=== PATIENT | male | born 1970 | race Caucasian/White ===

== ENCOUNTER 2025-03-02 10:14 | Observation (INO) | payer BC ==
[2025-03-02 10:40] LABS: BASOPHIL % 0.5 % (0.2-1.2); Basophil (Absolute #) 0.04 x10^3/uL (0.01-0.08); Eosinophil (Absolute #) 0.42 x10^3/uL (0.04-0.54); Hematocrit 47.3 % (40.1-51.0); Hemoglobin 16.3 g/dL (13.7-17.5); IMMATURE GRAN # 0.02 x10^3u/L (0.001-0.031); IMMATURE GRAN % 0.3 % (0.001-0.429); Lymphocyte (Absolute #) 1.93 x10^3/uL (1.32-3.57); Mean Corpuscular Hemoglobin 30.7 pg (25.7-32.2); Mean Corpuscular Hgb Concent. 34.5 g/dL (32.3-36.5); Monocyte (Absolute #) 0.66 x10^3/uL (0.30-0.82); NUCLEATED RBC # 0.00 x10^3u/L (0.00-0.012); NUCLEATED RBC % 0.0 % (0.00-0.2); Platelet Count 189 x10^3/uL (163-337); Red Blood Count 5.31 x10^6/uL (4.63-6.08); White Blood Count 7.8 x10^3/uL (4.23-9.07)
[2025-03-02 10:54] LABS: Calcium 8.8 mg/dL (8.4-10.2); Carbon Dioxide 24.0 mmol/L (22-30); Creatinine 1 1.13 mg/dL (0.66-1.25); EST GLOMERULAR FILTRATION RATE 77.2 ML/MIN; Glucose 135.0 mg/dL (74-106); Potassium 3.7 mmol/L (3.5-5.1); SGOT/AST 24.0 U/L (17-59); SGPT/ALT 20.0 U/L (0-50); Total Protein 6.7 g/dL (6.3-8.2)
[2025-03-02 10:57] LABS: INR 0.97 (0.8-3.0); PROTIME 10.9 SECONDS (9.4-12.5); PTT 23.1 SECONDS (25.1-36.5)
--- NOTE | 2025-03-02 11:09 | XRAY ---
CLINICAL HISTORY: stroke, left sided weakness COMPARISON: None. TECHNIQUE: Axial non-contrast CT scan of the brain was performed from the skull base to the high parietal region. One of the following dose reduction techniques was utilized for this exam: automated exposure control, adjustment of the mA and/or kV according to patient size, and use of iterative reconstruction. FINDINGS: Brain Parenchyma: Left inferior frontal lobe volume loss with a hypoattenuating region, suggesting chronic infarction likely secondary to prior intervention. No evidence of acute infarct, hemorrhage, or mass effect. No abnormal areas of hyperattenuation. Ventricular System: A prominent ventricular system is noted, denoting central atrophic changes. No evidence of hydrocephalus. Subarachnoid Spaces: A left supraclinoid surgical clip is noted. Capacious CSF spaces are noted, denoting cortical atrophic changes. No evidence of subarachnoid hemorrhage or extra-axial fluid collections. Cerebellum and Brainstem: Normal size and attenuation are noted. No masses, lesions, or areas of abnormal attenuation are identified. Orbits: The globes, optic nerves, and extraocular muscles demonstrate normal appearance. No evidence of orbital masses or abnormal attenuation. Sinuses: Minimal right ethmoidal and bilateral maxillary mucosal thickening is present. Nasal septum deviation is noted. Mastoid Air Cells: The mastoid air cells are clear. No evidence of mastoiditis. Skull and Meninges: A left frontotemporal craniotomy is noted. IMPRESSION: 1. No evidence of acute intracranial hemorrhage or abnormality. 2. Mild brain involutional changes. 3. 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 4. A left supraclinoid surgical clip is noted. A left frontotemporal craniotomy is noted. 5. Early changes of a stroke may not be detected on a CT scan. If there is strong clinical suspicion of stroke, then suggest MRI with diffusion-weighted imaging. Electronically Signed by: Roosevelt Mcclure MD. (03/02/2025 11:07:50 EDT)
--- NOTE | 2025-03-02 11:37 | ERPHSYRPT ---
- History of Present Illness Time Seen by Provider: 03/02/25 10:22 Source: patient Exam Limitations: no limitations Patient Subjective Stated Complaint: patient woke up at 8 am yesterday morning feeling numb on left side Triage Nursing Assessment: patient presents to ed via private vehicle, patient able to ambulate into ed with weakness, offered w/c and patient accepted, patient alert and oriented x 4, skin p/w/d, denies sob/chest pain, patient has left sided weakness/numbness Physician History: Patient having strokelike symptoms started yesterday. Woke up with left leg weakness, left arm weakness. Patient has a history of hypertension and smoking cigarettes. He is also on several other medications. Patient is maintaining his airway, as I walk in the room he is in no acute distress. States that he is "dragging his left leg" just to get around. No fevers no chills no signs or symptoms of meningitis. He is speaking clearly and has no obvious facial deficits as I talk to him. Patient is taking PO well. Same number of urinations and defecations. The patient has no signs of altered mental status, nuchal rigidity, signs of meningitis. The patient is up-to-date on all vaccinations. Allergies/Adverse Reactions: No Known Drug Allergies Allergy (Unverified 03/02/25 10:40) Home Medications: Amlodipine Besylate 10 mg PO DAILY 03/02/25 [History] Aspirin EC 81 mg [Ecotrin 81 mg] 81 mg PO DAILY 03/02/25 [History] Atorvastatin Calcium [Lipitor] 40 mg PO HS 03/02/25 [History] Furosemide 20 mg [Lasix 20 mg] 20 mg PO DAILY 03/02/25 [History] Hydralazine HCl 50 mg PO TID 03/02/25 [History] Isosorbide Mononitrate [Isosorbide Mononitrate ER] 120 mg PO DAILY 03/02/25 [History] Losartan Potassium 25 mg PO DAILY 03/02/25 [History] Varenicline Tartrate [Chantix] 1 mg PO BID 03/02/25 [History] carvediloL [Carvedilol] 25 mg PO BID 03/02/25 [History] Travel Risk - International Travel Have you traveled outside of the country in past 3 weeks: No - Emerging Infectious Disease Are you exhibiting symptoms associated with any current EIDs: No - Past Medical History Pertinent Past Medical History: Yes Cardiac History: Coronary Artery Disease, Hypertension Other Medical History: Shortness of breath - Past Surgical History Past Surgical History: Yes Neuro Surgical History: Other Other Surgical History: Brain surgery - Social History Smoking Status: Current every day smoker Exposure to second hand smoke: Yes Drug Use: none - Social Determinants of Health Will the patient participate in the screening: Yes Do you worry about a steady place to live?: No Do you have any problems with any of the following?: No known problems In the past 12 months,have you had to go without utilities?: No Transportation Issues: No Has anyone in your support network made you feel unsafe?: No Have you or anyone in your house had to go w/o enough food: No - Nursing Vital Signs Nursing Vital Signs: Initial Vital Signs Temperature 97 F 03/02/25 10:15 Pulse Rate 71 03/02/25 10:15 Respiratory Rate 16 03/02/25 10:15 Blood Pressure 210/128 03/02/25 10:15 O2 Sat by Pulse Oximetry 98 03/02/25 10:15 Pain Scale Pain Intensity 0 - Physical Exam SpO2 Interpretation: normal SpO2: 98 Comments: 03/02/25 11:41 Review of Systems Constitutional: Negative for fever. HENT: Negative for congestion. Respiratory: Negative for shortness of breath. Cardiovascular: Negative for chest pain. Gastrointestinal: Negative for abdominal pain. Genitourinary: Negative for dysuria. Musculoskeletal: Negative for back pain. Skin: Negative for rash. Neurological: Negative for headaches. Psychiatric/Behavioral: Negative for behavioral problems. All other systems reviewed and are negative. Physical Exam Vitals signs and nursing note reviewed. Constitutional: Appearance: Patient is well-developed. HENT: Head: Normocephalic and atraumatic. Eyes: Conjunctiva/sclera: Conjunctivae normal. Neck: Musculoskeletal: Normal range of motion. Trachea: No tracheal deviation. Cardiovascular: Rate and Rhythm: Normal rate. Heart sounds normal. Pulmonary: Effort: Pulmonary effort is normal. No respiratory distress. Abdominal: Palpations: Abdomen is soft. Musculoskeletal: General: No deformity. Skin: General: Skin is warm and dry. Neurological/ Psychiatric: Mental Status: Mental status, behavior, interaction with environment is appropriate for patient's age and condition Motor: Patient lifts right arm against gravity. Muscle strength and tone are normal Patient able to lift right leg against gravity. Patient does have left lower leg drift. Left upper arm drift. Reflexes: Intact major reflexes Sensory: Light touch sensation intact throughout upper and lower extremities Coordination: Rapid alternating movements are intact. Normal [id number] Gait/Stance: Posture is normal, patient is sitting up in bed with normal strength - Course Nursing assessment & vital signs reviewed: Yes EKG Interpreted by Me: Sinus Rhythm (EKG demonstrates sinus rhythm, rate of 73, MS interval 191, QRS 90, QTc is 464, no STEMI or other ST changes) Ordered Tests: Active Orders 24 hr Category Date Time Status Admit as Inpatient ROUTINE Care 03/02/25 12:36 Active Call Admit Doctor for Orders ON ADMISSION Care 03/02/25 12:36 Active Appraisal Coordinator STAT Care 03/02/25 10:30 Active Code Status Order ROUTINE Care 03/02/25 12:36 Active EKG-ER Only STAT Care 03/02/25 10:29 Active IV Insertion STAT Care 03/02/25 10:29 Active NPO (ED) STAT Care 03/02/25 10:29 Active POCT Glucose Check DAILY Care 03/02/25 10:29 Active Heart-Healthy Diet Diet 03/03/25 Breakfast Active HEAD WITHOUT CONTRAST [CT] Stat Exams 03/02/25 10:30 Completed CBC W DIFF Stat Lab 03/02/25 10:35 Completed CMP Stat Lab 03/02/25 10:35 Completed PROTIME WITH INR Stat Lab 03/02/25 10:35 Completed PTT Stat Lab 03/02/25 10:35 Completed TROPONIN Q4H Lab 03/02/25 10:35 Completed TROPONIN Q4H Lab 03/02/25 14:30 Ordered TROPONIN Q4H Lab 03/02/25 18:30 Ordered Transfer Order Routine Transfer 03/02/25 Completed Medication Summary Generic Name Dose Route Start Last Admin Trade Name Freq PRN Reason Stop Dose Admin Nicardipine HCl 25 mg/ Sodium 250 mls @ 50 mls/hr 03/02/25 12:21 Chloride IV 04/01/25 12:20 .Q5H PRN HYPERTENSION Protocol Discontinued Medications Generic Name Dose Route Start Last Admin Trade Name Freq PRN Reason Stop Dose Admin Sodium Chloride Confirm 03/02/25 12:32 Sodium Chloride 0.9% 250 Ml Administered 03/02/25 12:33 Dose 250 mls @ ud IV .STK-MED ONE Nicardipine HCl Confirm 03/02/25 12:32 Nicardipine Hcl 25mg/10ml Vial Administered 03/02/25 12:33 Dose 25 mg IV .STK-MED ONE Lab/Rad Data: Laboratory Result Diagrams 03/02/25 10:35 03/02/25 10:35 Laboratory Results 03/02/25 03/02/25 03/02/25 Range/Units 10:35 10:35 10:35 WBC (4.23-9.07) x10^3/uL RBC (4.63-6.08) x10^6/uL Hgb (13.7-17.5) g/dL Hct (40.1-51.0) % MCV (79.0-92.2) fL MCH (25.7-32.2) pg MCHC (32.3-36.5) g/dL RDW (11.6-14.4) % Plt Count (163-337) x10^3/uL MPV (9.4-12.4) fL Gran % (34.0-67.9) % Immature Gran % (Auto) (0.001-0.429) % Nucleat RBC Rel Count (0.00-0.2) % Eos # (Auto) (0.04-0.54) x10^3/uL Immature Gran # (Auto) (0.001-0.031) x10^3u/L Absolute Lymphs (auto) (1.32-3.57) x10^3/uL Absolute Monos (auto) (0.30-0.82) x10^3/uL Absolute Nucleated RBC (0.00-0.012) x10^3u/L Lymphocytes % (21.8-53.1) % Monocytes % (5.3-12.2) % Eosinophils % (0.8-7.0) % Basophils % (0.2-1.2) % Absolute Granulocytes (1.78-5.38) x10^3/uL Basophils # (0.01-0.08) x10^3/uL PT 10.9 (9.4-12.5) SECONDS INR 0.97 (0.8-3.0) APTT 23.1 L (25.1-36.5) SECONDS Sodium 137 (135-145) mmol/L Potassium 3.7 (3.5-5.1) mmol/L Chloride 106 (98-107) mmol/L Carbon Dioxide 24 (22-30) mmol/L Anion Gap 10.7 (5-15) MEQ/L BUN 13 (9-20) mg/dL Creatinine 1.13 (0.66-1.25) mg/dL Estimated GFR 77.2 ML/MIN Glucose 135 H (74-106) mg/dL Calcium 8.8 (8.4-10.2) mg/dL Total Bilirubin 0.30 (0.2-1.3) mg/dL AST 24 (17-59) U/L ALT 20 (0-50) U/L Alkaline Phosphatase 88 (38-126) U/L Troponin I < 0.012 (0.000-0.033) ng/mL Serum Total Protein 6.7 (6.3-8.2) g/dL Albumin 4.1 (3.5-5.0) g/dL 03/02/25 Range/Units 10:35 WBC 7.8 (4.23-9.07) x10^3/uL RBC 5.31 (4.63-6.08) x10^6/uL Hgb 16.3 (13.7-17.5) g/dL Hct 47.3 (40.1-51.0) % MCV 89.1 (79.0-92.2) fL MCH 30.7 (25.7-32.2) pg MCHC 34.5 (32.3-36.5) g/dL RDW 12.5 (11.6-14.4) % Plt Count 189 (163-337) x10^3/uL MPV 9.2 L (9.4-12.4) fL Gran % 60.4 (34.0-67.9) % Immature Gran % (Auto) 0.3 (0.001-0.429) % Nucleat RBC Rel Count 0.0 (0.00-0.2) % Eos # (Auto) 0.42 (0.04-0.54) x10^3/uL Immature Gran # (Auto) 0.02 (0.001-0.031) x10^3u/L Absolute Lymphs (auto) 1.93 (1.32-3.57) x10^3/uL Absolute Monos (auto) 0.66 (0.30-0.82) x10^3/uL Absolute Nucleated RBC 0.00 (0.00-0.012) x10^3u/L Lymphocytes % 24.9 (21.8-53.1) % Monocytes % 8.5 (5.3-12.2) % Eosinophils % 5.4 (0.8-7.0) % Basophils % 0.5 (0.2-1.2) % Absolute Granulocytes 4.68 (1.78-5.38) x10^3/uL Basophils # 0.04 (0.01-0.08) x10^3/uL PT (9.4-12.5) SECONDS INR (0.8-3.0) APTT (25.1-36.5) SECONDS Sodium (135-145) mmol/L Potassium (3.5-5.1) mmol/L Chloride (98-107) mmol/L Carbon Dioxide (22-30) mmol/L Anion Gap (5-15) MEQ/L BUN (9-20) mg/dL Creatinine (0.66-1.25) mg/dL Estimated GFR ML/MIN Glucose (74-106) mg/dL Calcium (8.4-10.2) mg/dL Total Bilirubin (0.2-1.3) mg/dL AST (17-59) U/L ALT (0-50) U/L Alkaline Phosphatase (38-126) U/L Troponin I (0.000-0.033) ng/mL Serum Total Protein (6.3-8.2) g/dL Albumin (3.5-5.0) g/dL - Progress Progress: improved Progress Note: 03/02/25 11:43 Differential diagnosis includes: PNA, STEMI, NSTEMI, other infection, musculoskeletal pain, pneumothorax stroke, - We'll obtain basic labs, fluids, EKG, troponin, chest x-ray - EKG shows no ST changes - my read - O2 saturations consistently greater than 95%. Reevaluation Head CT demonstrates no obvious acute stroke. No head bleed. Discussed with admitting physician, Dr. Royal Pavon. Patient's blood pressure is 209/115. He requested we not treat this blood pressure. He requested that we discussed with teleneurology prior to admission to the hospital. 03/02/25 12:22 Patient seen by teleneurology, Dr. Leo. Please see his note for full details. He requested CTA head and neck to be done today, loading dose Plavix 300, moved to 75 mg daily after that with an aspirin. Patient's blood pressure is now 230/141 in the room. He recommended starting a nicardipine drip with a goal systolic of 180-140. This is based off of symptoms. Also, on his reexam patient's left leg weakness had improved. He is now able to lift the left leg against gravity without difficulty. Continue close monitoring in the emergency department. I did call back Dr. Royal Pavon. Patient will continue to need ICU admission with close monitoring given his tenuous status. ED critical care statement As staff physician, I have provided critical care. Time: 46 mins Criteria for critical illness: Hypertensive urgency causing strokelike symptoms requiring Cardene drip Treatment and management provided include: Coordination of management with ETC care team, consultants, and inpatient care team. [id number] assessment of condition and response to therapy. Review and interpretation of emergent diagnostic testing. Medical chart review and completion. Direction and immediate supervision of the following therapy: Critical care was time spent personally by me on the following activities: blood draw for specimens, development of treatment plan with patient or surrogate, discussions with consultants, discussions with primary provider, interpretation of cardiac output measurements, evaluation of patient's response to treatment, examination of patient, obtaining history from patient or surrogate, ordering and performing treatments and interventions, ordering and review of laboratory studies, ordering and review of radiographic studies, pulse oximetry, re-evaluation of patient's condition and review of old charts. This time was independent of all procedures performed. Burak Plasencia Counseled pt/family regarding: lab results, diagnosis, need for follow-up, rad results, smoking cessation - Departure Departure Disposition: In-patient Admission Clinical Impression: Stroke-like symptoms, Hypertensive urgency Condition: Stable Critical Care Time: Yes Critical Care Time(excluding separately billable procedures): Critical 75-104 mins
[2025-03-02] MEDS ORDERED: CARDENE*** 25 MG in Sodium Chloride 0.9% 250 ML 240 ML IV PRN (12:31)
[2025-03-02] MEDS ORDERED: CARDENE IV ONE (12:32)
[2025-03-02] MEDS: CARDENE*** 25 MG in Sodium Chloride 0.9% 250 ML 240 ML IV PRN (12:50)
--- NOTE | 2025-03-02 13:29 | PCM.HP ---
History of Present Illness - Chief Complaint Chief Complaint: hypertensive urgency/ stroke r/o Date: 03/02/25 History of Present Illness: Mr. Michaels is a 55-year-old male with a history of HLD, hypertension, tobacco use, and prior cerebral aneurysm repair with left frontotemporal craniotomy and supraclinoid surgical clip placement who presented to the emergency department on March 02, 2025, with acute neurologic symptoms. He reports that at approximately 8:00 a.m. on the prior morning, he awoke and noticed significant difficulty getting out of bed due to left arm numbness, tingling, and weakness accompanied by left leg weakness. Initially, he attributed his symptoms to having slept wrong and assumed his arm and leg had simply fallen asleep. However, when he attempted to get out of bed, he found the numbness and tingling persisted and he was unable to ambulate normally. He described unsteady gait throughout the day, requiring effort to maintain balance. Believing his symptoms might improve with time, he delayed seeking care, but when the weakness and sensory changes failed to resolve, he ultimately presented to the hospital the following morning. 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 On arrival, he was markedly hypertensive with blood pressure of 210/128 mmHg. Subsequent measurement during teleneurology evaluation was again critically elevated at 230/141 mmHg. Other vital signs were stable. Neurologic examination confirmed left-sided weakness and sensory changes. Lab findings remarkable for CBC and chemistries unremarkable. Initial non-contrast CT head showed no acute intracranial hemorrhage or large vessel infarct but did demonstrate chronic postsurgical changes: encephalomalacia of the left inferior frontal lobe, prior left frontotemporal craniotomy, and a supraclinoid surgical clip. Mild brain involutional changes were also noted. No acute mass effect was seen. Given the presence of a metallic aneurysm clip, MRI is contraindicated, limiting advanced imaging to CT and CTA modalities. Teleneurology was consulted (Dr. Leo). Given the patients delayed presentation beyond the thrombolysis and thrombectomy window, recommendations included CTA of the head and neck for vascular evaluation, initiation of dual antiplatelet therapy with aspirin and clopidogrel (loading dose 300 mg, then 75 mg daily), and blood pressure control with IV nicardipine infusion to target systolic BP 889584 mmHg. The patient was admitted to the intensive care unit for close neurologic monitoring and hemodynamic management. I personally provided critical care services to this patient for the evaluation and management of acute ischemic stroke with hypertensive emergency requiring continuous IV antihypertensive infusion and intensive monitoring. The patient was at significant risk for life-threatening deterioration, including intracranial hemorrhage, cerebral edema, or cardiovascular complications. Critical care time included direct evaluation, neurologic assessment, hemodynamic management, review of imaging and laboratory data, titration of IV nicardipine infusion, coordination with teleneurology, initiation of dual a ntiplatelet therapy, and discussions with ICU staff regarding monitoring and disposition. Total critical care time: 45 minutes (exclusive of separately billable procedures). - Review of Systems Constitutional: No Symptoms Eyes: No Symptoms Ears, Nose, & Throat: No Symptoms Respiratory: No Symptoms Cardiac: No Symptoms Abdominal/Gastrointestinal: No Symptoms Genitourinary Symptoms: No Symptoms Musculoskeletal: No Symptoms Skin: No Symptoms Neurological: Focal Weakness (LUE/LLE), Gait Changes (unsteady gait), Headache (chronic), Sensory Changes (LUE/LLE) Psychological: No Symptoms Endocrine: No Symptoms Hematologic/Lymphatic: No Symptoms Immunological/Allergic: No Symptoms Medications & Allergies Home Medications: Home Medication List Amlodipine Besylate 10 mg PO DAILY 03/02/25 [History Confirmed 03/02/25] Aspirin EC 81 mg [Ecotrin 81 mg] 81 mg PO DAILY 03/02/25 [History Confirmed 03/02/25] Atorvastatin Calcium [Lipitor] 40 mg PO HS 03/02/25 [History Confirmed 03/02/25] Furosemide 20 mg [Lasix 20 mg] 20 mg PO DAILY 03/02/25 [History Confirmed 03/02/25] Hydralazine HCl 50 mg PO TID 03/02/25 [History Confirmed 03/02/25] Isosorbide Mononitrate [Isosorbide Mononitrate ER] 120 mg PO DAILY 03/02/25 [History Confirmed 03/02/25] Losartan Potassium 25 mg PO DAILY 03/02/25 [History Confirmed 03/02/25] Varenicline Tartrate [Chantix] 1 mg PO BID 03/02/25 [History Confirmed 03/02/25] carvediloL [Carvedilol] 25 mg PO BID 03/02/25 [History Confirmed 03/02/25] Allergies/Adverse Reactions: Allergies Allergy/AdvReac Type Severity Reaction Status Date / Time No Known Drug Allergies Allergy Unverified 03/02/25 10:40 - Past Medical History Past Medical History: Yes Neurological History: Other (Brain anneurysm) Cardiac History: Hypertension, Other (HLD) Comment: Shortness of breath - Past Surgical History Past Surgical History: Yes Neuro Surgical History: Other Other Surgical History: Brain surgery Significant Family History: diabetes (left frontotemporal craniotomy and supraclinoid surgical clip placement) - Social History Smoking Status: Current every day smoker Exposure to second hand smoke: Yes Alcohol: None Drug Use: none - Social Determinants of Health Will the patient participate in the screening: Yes Do you worry about a steady place to live?: No Do you have any problems with any of the following?: No known problems In the past 12 months,have you had to go without utilities?: No Have you or anyone in your house had to go without enough: No Transportation Issues: No Has anyone in your support network made you feel unsafe?: No - Physical Exam Vital Signs: Vital Signs - 24 hr Temp Pulse Resp BP BP Pulse Ox 03/02/25 13:09 98 03/02/25 12:49 60 16 189/131 98 03/02/25 12:30 212/126 03/02/25 12:03 230/141 98 03/02/25 12:01 59 L 14 219/132 98 03/02/25 11:30 61 13 184/115 97 03/02/25 11:01 209/115 03/02/25 10:49 213/138 03/02/25 10:26 213/141 96 03/02/25 10:15 97 F 71 16 210/128 98 General Appearance: no apparent distress Neurologic Exam: alert, oriented x 3, cooperative, sensory deficit (lUE/LLE), motor weakness (LLE/LUE Hand disease case manager Left 4/5 R 5/5 Left leg 2/5 right leg 5/5 strength) Eye Exam: PERRL/EOMI Ears, Nose, Throat Exam: normal ENT inspection Neck Exam: normal inspection Respiratory Exam: normal breath sounds, lungs clear Cardiovascular Exam: regular rate/rhythm, normal heart sounds Gastrointestinal/Abdomen Exam: soft, normal bowel sounds Rectal Exam: deferred Back Exam: normal inspection Extremity Exam: normal inspection Skin Exam: normal color Results - Labs Lab/Micro Results: Lab Results-Last 24 Hours 03/02/25 03/02/25 03/02/25 Range/Units 10:35 10:35 10:35 WBC 7.8 (4.23-9.07) x10^3/uL RBC 5.31 (4.63-6.08) x10^6/uL Hgb 16.3 (13.7-17.5) g/dL Hct 47.3 (40.1-51.0) % MCV 89.1 (79.0-92.2) fL MCH 30.7 (25.7-32.2) pg MCHC 34.5 (32.3-36.5) g/dL RDW 12.5 (11.6-14.4) % Plt Count 189 (163-337) x10^3/uL MPV 9.2 L (9.4-12.4) fL Gran % 60.4 (34.0-67.9) % Immature Gran % (Auto) 0.3 (0.001-0.429) % Nucleat RBC Rel Count 0.0 (0.00-0.2) % Eos # (Auto) 0.42 (0.04-0.54) x10^3/uL Immature Gran # (Auto) 0.02 (0.001-0.031) x10^3u/L Absolute Lymphs (auto) 1.93 (1.32-3.57) x10^3/uL Absolute Monos (auto) 0.66 (0.30-0.82) x10^3/uL Absolute Nucleated RBC 0.00 (0.00-0.012) x10^3u/L Lymphocytes % 24.9 (21.8-53.1) % Monocytes % 8.5 (5.3-12.2) % Eosinophils % 5.4 (0.8-7.0) % Basophils % 0.5 (0.2-1.2) % Absolute Granulocytes 4.68 (1.78-5.38) x10^3/uL Basophils # 0.04 (0.01-0.08) x10^3/uL PT 10.9 (9.4-12.5) SECONDS INR 0.97 (0.8-3.0) APTT 23.1 L (25.1-36.5) SECONDS Sodium 137 (135-145) mmol/L Potassium 3.7 (3.5-5.1) mmol/L Chloride 106 (98-107) mmol/L Carbon Dioxide 24 (22-30) mmol/L Anion Gap 10.7 (5-15) MEQ/L BUN 13 (9-20) mg/dL Creatinine 1.13 (0.66-1.25) mg/dL Estimated GFR 77.2 ML/MIN Glucose 135 H (74-106) mg/dL Calcium 8.8 (8.4-10.2) mg/dL Total Bilirubin 0.30 (0.2-1.3) mg/dL AST 24 (17-59) U/L ALT 20 (0-50) U/L Alkaline Phosphatase 88 (38-126) U/L Troponin I (0.000-0.033) ng/mL Serum Total Protein 6.7 (6.3-8.2) g/dL Albumin 4.1 (3.5-5.0) g/dL 03/02/25 Range/Units 10:35 WBC (4.23-9.07) x10^3/uL RBC (4.63-6.08) x10^6/uL Hgb (13.7-17.5) g/dL Hct (40.1-51.0) % MCV (79.0-92.2) fL MCH (25.7-32.2) pg MCHC (32.3-36.5) g/dL RDW (11.6-14.4) % Plt Count (163-337) x10^3/uL MPV (9.4-12.4) fL Gran % (34.0-67.9) % Immature Gran % (Auto) (0.001-0.429) % Nucleat RBC Rel Count (0.00-0.2) % Eos # (Auto) (0.04-0.54) x10^3/uL Immature Gran # (Auto) (0.001-0.031) x10^3u/L Absolute Lymphs (auto) (1.32-3.57) x10^3/uL Absolute Monos (auto) (0.30-0.82) x10^3/uL Absolute Nucleated RBC (0.00-0.012) x10^3u/L Lymphocytes % (21.8-53.1) % Monocytes % (5.3-12.2) % Eosinophils % (0.8-7.0) % Basophils % (0.2-1.2) % Absolute Granulocytes (1.78-5.38) x10^3/uL Basophils # (0.01-0.08) x10^3/uL PT (9.4-12.5) SECONDS INR (0.8-3.0) APTT (25.1-36.5) SECONDS Sodium (135-145) mmol/L Potassium (3.5-5.1) mmol/L Chloride (98-107) mmol/L Carbon Dioxide (22-30) mmol/L Anion Gap (5-15) MEQ/L BUN (9-20) mg/dL Creatinine (0.66-1.25) mg/dL Estimated GFR ML/MIN Glucose (74-106) mg/dL Calcium (8.4-10.2) mg/dL Total Bilirubin (0.2-1.3) mg/dL AST (17-59) U/L ALT (0-50) U/L Alkaline Phosphatase (38-126) U/L Troponin I < 0.012 (0.000-0.033) ng/mL Serum Total Protein (6.3-8.2) g/dL Albumin (3.5-5.0) g/dL - Radiology Impressions Radiology Exams & Impressions: Radiology Procedures Category Date Time Status HEAD WITHOUT CONTRAST [CT] Stat Exams 03/02/25 10:30 Completed Assessment/Plan (1) Hypertensive urgency Current Visit: Yes Status: Acute Assessment & Plan: -Presenting BP >210/120, peaking at 230/141 mmHg. -Nicardipine infusion initiated; titrate to goal systolic 335340 mmHg. -Continuous cardiac monitoring; arterial line placement if feasible. -Avoid rapid overcorrection to maintain cerebral perfusion given ischemic stroke. -Transition to oral antihypertensives once stabilized. Code(s): I16.0 - HYPERTENSIVE URGENCY (2) Stroke-like symptoms Current Visit: Yes Status: Acute Assessment & Plan: -Symptom onset >24 hours prior; outside reperfusion therapy window. -CT head: no acute hemorrhage, but prior craniotomy/clip with chronic encephalo malacia. -MRI contraindicated due to supraclinoid aneurysm clip. -CTA head/neck ordered for vascular evaluation -Started on dual antiplatelet therapy (aspirin + clopidogrel) per neurology.- Plavix 300mg loading dose, then 75mg daily there after/ASA -Admit ICU for q1h neuro checks, continue DAPT, and trend CT imaging for stability. -If CTA unrevealing, consider repeat CT at 24 hours to exclude evolving infarct. -Neurology to follow -Nicardipine drip per neurology for goal systolic BP 140-180 Code(s): R29.90 - UNSPECIFIED SYMPTOMS AND SIGNS INVOLVING THE NERVOUS SYSTEM (3) History of cerebral aneurysm repair Current Visit: Yes Status: Acute Assessment & Plan: -Prior supraclinoid clip documented on CT. -MRI contraindicated unless operative notes confirm MRI-compatible clip type. -Follow stroke pathway with CT/CTA imaging only -Patient states he does not follow up with neurology Code(s): Z98.890 - OTHER SPECIFIED POSTPROCEDURAL STATES; Z86.79 - PERSONAL HISTORY OF OTHER DISEASES OF THE CIRCULATORY SYSTEM (4) CAD (coronary artery disease) Current Visit: Yes Status: Acute Assessment & Plan: -Currently on aspirin, now transitioned to DAPT - currently on statin -Monitor for angina or troponin rise given hypertensive stress. -Outpatient cardiology follow-up after acute neurologic stabilization. Code(s): I25.10 - ATHSCL HEART DISEASE OF [place] CORONARY ARTERY W/O ANG PCTRS (5) HTN (hypertension) Current Visit: Yes Status: Acute Assessment & Plan: -Long-standing, poorly controlled -patient states systolic BP normally in the 200's -Review home antihypertensives once stabilized. -Adjust oral regimen prior to discharge for long-term BP control. Code(s): I10 - ESSENTIAL (PRIMARY) HYPERTENSION (6) Smoker Current Visit: Yes Status: Acute Assessment & Plan: -Major risk factor for vascular disease. -Provide cessation counseling once clinically stable; consider nicotine replacement. VTE: Plavix/ASA PPI: protonix Dispo: 1-2 days Code status: Full Code Code(s): F17.200 - NICOTINE DEPENDENCE, UNSPECIFIED, UNCOMPLICATED Telemedicine Encounter - Telemedicine Encounter Telemedicine Encounter: "The entirety of this encounter was performed via Telemedicine" This visit was performed using real-time audio and video connection between my location and thepatients locationwith the assistance of a surrogateat the patients location. Written or verbal consent was obtained from the patient/guardian to perform this visit [email or web address] technology. Any patient questions regarding the telemedicine interaction were answered.
[2025-03-02] MEDS ORDERED: Zofran 4 MG/2 ML VIAL IV PRN (13:47)
[2025-03-02] MEDS: Nicoderm CQ 21 MG TOP SCH (14:57)
[2025-03-02] MEDS: PLAVIX Tablet PO ONE (14:59)
[2025-03-02] MEDS: LIPITOR 40MG PO SCH (15:01)
--- NOTE | 2025-03-02 18:21 | XRAY ---
CLINICAL HISTORY: stroke like symptoms COMPARISON: No previous studies are available for comparison. TECHNIQUE: CT angiography of the head and neck was performed following the intravenous administration of iodinated contrast material. Axial images were obtained from the aortic arch to the vertex. Coronal and sagittal reformatted images were also reviewed. One of the following dose reduction techniques was utilized for this exam: automated exposure control, adjustment of the mA and/or kV according to patient size, and use of iterative reconstruction. One of these 3D techniques was utilized: Maximum Intensity Pixel (MIP), 3D reconstructed images, volume rendered images, or surface shaded rendering. FINDINGS: Carotid Arteries: The common, internal, and external carotid arteries are patent bilaterally, with no evidence of significant stenosis, aneurysm, or dissection. Mixed atheromatous plaque is noted at the proximal part of the left internal carotid artery, causing minimal stenosis of about 10% of its lumen. Vertebral Arteries: The right vertebral artery is markedly hypoplastic and faintly opacified along its course, likely a normal variant. The left vertebral artery is patent, with no evidence of significant stenosis, aneurysm, or dissection. Thyroid Gland: The thyroid gland is normal in size and appearance, with no focal lesions. Lymph Nodes: There is no evidence of significant lymphadenopathy in the neck. Soft Tissues: The soft tissues of the neck are unremarkable, with no evidence of masses or abnormal collections. Additional Findings: Degenerative changes of the spine. IMPRESSION: 1. No evidence of significant vascular abnormalities. 2. Markedly hypoplastic, faintly opacified right vertebral artery along its course, likely a normal variant Electronically Signed by: Roosevelt Mcclure MD. (03/02/2025 18:20:05 EDT)
--- NOTE | 2025-03-02 18:35 | XRAY ---
CLINICAL HISTORY: stroke like symptoms COMPARISON: No previous studies are available for comparison. TECHNIQUE: CT angiography of the head was performed with and without the administration of iodinated contrast material. Contiguous axial images were obtained from the base of the skull to the vertex. Coronal and sagittal reformatted images were also reviewed. One of the following 3D techniques was utilized: Maximum Intensity Pixel (MIP), 3D reconstructed images, volume rendered images, or surface shaded rendering. One of the following dose reduction techniques was utilized for this exam: automated exposure control, adjustment of the mA and/or kV according to patient size, or use of iterative reconstruction. FINDINGS: Intracranial arteries: The intracranial arteries, including the anterior cerebral arteries, middle cerebral arteries, posterior cerebral arteries, basilar artery, and vertebral arteries, are all patent without evidence of significant stenosis, aneurysm, or dissection. There is no evidence of vascular malformations. A hypoplastic right vertebral artery and a dominant left vertebral artery are present, which is likely a normal variant. A surgical clip is noted at the anatomical site of the anterior communicating artery. Mild atherosclerotic changes of the cavernous portion of both internal carotid arteries are present, with multiple calcified plaques causing mild stenosis of up to 20% of their lumen. [place]: The [place] is intact with no anatomical variations or abnormalities noted. All segments are well visualized and normal in appearance. Venous system: The visualized portions of the venous system, including the dural venous sinuses, are patent with no evidence of thrombosis. Brain parenchyma: The brain parenchyma shows no evidence of acute infarct, hemorrhage, or mass effect. The ventricles and sulci are normal in size and configuration. Bones: The bony structures of the skull are intact without evidence of fracture or destructive lesions. Soft tissues: The visualized soft tissues of the head are unremarkable. Additional findings: Craniotomy is noted at the left frontoparietal temporal region. IMPRESSION: 1. No evidence of significant vascular abnormalities. 2. Hypoplastic right vertebral artery and dominant left vertebral artery, which is likely a normal variant. 3. A surgical clip is noted at the anatomical site of the anterior communicating artery. 4. Mild atherosclerotic changes of the cavernous portion of both internal carotid arteries without significant stenosis. Electronically Signed by: Roosevelt Mcclure MD. (03/02/2025 18:34:20 EDT)
--- NOTE | 2025-03-03 05:23 | PCM.NOTE ---
Date and Time: 03/03/25 0522 Subjective Assessment: Mr. Michaels is a 55-year-old male with a history of HLD, hypertension, tobacco use, and prior cerebral aneurysm repair with left frontotemporal craniotomy and supraclinoid surgical clip placement who presented to the emergency department on March 02, 2025, with acute neurologic symptoms. He reports that at approximately 8:00 a.m. on the prior morning, he awoke and noticed significant difficulty getting out of bed due to left arm numbness, tingling, and weakness accompanied by left leg weakness. Initially, he attributed his symptoms to having slept wrong and assumed his arm and leg had simply fallen asleep. However, when he attempted to get out of bed, he found the numbness and tingling persisted and he was unable to ambulate normally. He described unsteady gait throughout the day, requiring effort to maintain balance. Believing his symptoms might improve with time, he delayed seeking care, but when the weakness and sensory changes failed to resolve, he ultimately presented to the hospital the following morning. 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 On arrival, he was markedly hypertensive with blood pressure of 210/128 mmHg. Subsequent measurement during teleneurology evaluation was again critically elevated at 230/141 mmHg. Other vital signs were stable. Neurologic examination confirmed left-sided weakness and sensory changes. Lab findings remarkable for CBC and chemistries unremarkable. Initial non-contrast CT head showed no acute intracranial hemorrhage or large vessel infarct but did demonstrate chronic postsurgical changes: encephalomalacia of the left inferior frontal lobe, prior left frontotemporal craniotomy, and a supraclinoid surgical clip. Mild brain involutional changes were also noted. No acute mass effect was seen. Given the presence of a metallic aneurysm clip, MRI is contraindicated, limiting advanced imaging to CT and CTA modalities. Teleneurology was consulted (Dr. Leo). Given the patients delayed presentation beyond the thrombolysis and thrombectomy window, recommendations included CTA of the head and neck for vascular evaluation, initiation of dual antiplatelet therapy with aspirin and clopidogrel (loading dose 300 mg, then 75 mg daily), and blood pressure control with IV nicardipine infusion to target systolic BP 550519 mmHg. The patient was admitted to the intensive care unit for close neurologic monitoring and hemodyn amic management. 03/03: Patient evaluated at bedside and continues to endorse chronic headache along with left-sided upper and lower extremity weakness. Blood pressure is now better controlled, currently at goal with systolic <180. Patient reports his home blood pressure typically runs >180, often in the [id number]. Nicardipine infusion has been discontinued. Antihypertensive regimen adjusted: losartan increased to 100 mg daily, hydralazine increased to 100 mg three times daily, hydrochlorothiazide 25 mg daily added, and furosemide discontinued. CTA head and neck was unremarkable. Patient is scheduled for repeat head CT this afternoon per neurology recommendations. Neurology will be re-consulted once repeat imaging and all results are available for review. - Review of Systems Constitutional: No Symptoms, Night Sweats Ears, Nose, & Throat: No Symptoms Respiratory: No Symptoms Cardiac: No Symptoms Abdominal/Gastrointestinal: No Symptoms Genitourinary Symptoms: No Symptoms Musculoskeletal: No Symptoms Skin: No Symptoms Neurological: Focal Weakness, Headache (chronic), Sensory Changes Psychological: No Symptoms Endocrine: No Symptoms Hematologic/Lymphatic: No Symptoms Objective Exam General Appearance: no apparent distress Neurologic Exam: alert, oriented x 3, cooperative, motor deficits (LUE/LLE), sensory deficit (LUE/LLE), abnormal gait Skin Exam: normal color Eye Exam: PERRL Ears, Nose, Throat Exam: normal ENT inspection Neck Exam: normal inspection Lymphatic Exam: adenopathy Respiratory Exam: normal breath sounds, lungs clear Cardiovascular Exam: regular rate/rhythm, normal heart sounds Gastrointestinal/Abdomen Exam: soft, normal bowel sounds Extremity Exam: normal inspection Back Exam: normal inspection Male Genitalia Exam: deferred Rectal Exam: deferred Objective Data Vital Signs: Vital Signs - 24 hr Temp Pulse Resp BP BP Pulse Ox 03/03/25 05:07 67 18 144/105 94 L 03/03/25 05:00 69 14 127/103 96 03/03/25 04:45 67 15 139/97 95 03/03/25 04:30 69 16 141/99 94 L 03/03/25 04:15 66 33 H 150/102 95 03/03/25 04:00 98.1 F 65 20 146/101 97 03/03/25 03:45 69 19 144/102 97 03/03/25 03:30 66 21 141/98 97 03/03/25 03:15 65 16 140/100 95 03/03/25 03:00 67 15 139/99 94 L 03/03/25 02:45 68 16 135/97 94 L 03/03/25 02:30 66 15 136/96 95 03/03/25 02:15 68 18 135/95 95 03/03/25 02:00 68 18 142/100 96 03/03/25 01:45 70 17 143/99 97 03/03/25 01:30 70 19 137/98 96 03/03/25 01:23 68 16 145/105 95 03/03/25 01:15 75 12 128/101 97 03/03/25 01:00 71 17 141/107 95 03/03/25 00:45 74 17 146/96 95 03/03/25 00:30 73 16 141/103 94 L 03/03/25 00:15 81 16 142/110 97 03/03/25 00:01 81 03/03/25 00:00 98.4 F 81 17 129/97 97 03/02/25 23:45 72 16 133/95 97 03/02/25 23:30 75 16 129/98 96 03/02/25 23:15 83 17 144/102 96 03/02/25 23:00 97 H 20 128/107 96 03/02/25 22:45 85 20 133/93 96 03/02/25 22:30 78 21 131/87 99 03/02/25 22:15 78 17 129/88 97 03/02/25 22:00 78 19 140/98 98 03/02/25 21:45 98 H 20 133/110 95 03/02/25 21:30 85 22 136/94 95 03/02/25 21:15 85 21 138/90 92 L 03/02/25 21:00 86 17 130/88 97 03/02/25 20:45 87 18 124/89 96 03/02/25 20:36 98 H 20 139/98 97 03/02/25 20:31 98 H 17 122/93 97 03/02/25 20:30 98 H 25 H 87 L 03/02/25 20:16 102 H 15 162/105 96 03/02/25 20:00 98.1 F 109 H 16 153/99 96 03/02/25 19:45 100 H 24 159/104 97 03/02/25 19:30 105 H 23 149/115 03/02/25 19:15 99 H 21 147/99 03/02/25 19:00 92 H 25 H 150/101 03/02/25 18:45 97 H 23 146/97 03/02/25 18:40 95 H 16 141/99 03/02/25 18:39 101 H 19 03/02/25 18:30 96 H 17 03/02/25 18:20 89 21 03/02/25 18:17 92 H 22 03/02/25 18:00 98.5 F 93 H 22 151/107 03/02/25 17:45 92 H 20 156/106 03/02/25 17:30 98 H 18 166/109 03/02/25 17:24 100 H 24 165/114 03/02/25 17:00 158/105 03/02/25 16:45 89 21 155/114 89 L 03/02/25 16:30 93 H 21 135/114 79 L 03/02/25 16:15 98 H 18 156/117 96 03/02/25 16:03 85 24 154/101 97 03/02/25 16:02 77 21 94 L 03/02/25 16:00 92 H 03/02/25 15:45 87 163/120 03/02/25 15:32 96 H 25 H 181/129 98 03/02/25 15:16 94 H 9 L 156/107 95 03/02/25 15:00 81 22 174/113 98 03/02/25 14:46 92 H 24 168/111 97 03/02/25 13:10 98.2 F 66 20 200/125 98 03/02/25 13:09 98 03/02/25 12:49 60 16 189/131 98 03/02/25 12:30 212/126 03/02/25 12:03 230/141 98 03/02/25 12:01 59 L 14 219/132 98 03/02/25 11:30 61 13 184/115 97 03/02/25 11:01 209/115 03/02/25 10:49 213/138 03/02/25 10:26 213/141 96 03/02/25 10:15 97 F 71 16 210/128 98 Pain Assessment - Last Documented Pain Intensity 0 Intake and Output: Intake & Output 10/02/03/01/25 03/02/25 03/03/25 11:59 11:59 11:59 11:59 Intake Total 1156 Output Total 2750 Balance -1594 Weight 86.183 kg 83.4 kg Lab Results: Lab Results-Last 24 Hours 03/02/25 03/02/25 03/02/25 Range/Units 10:35 10:35 10:35 WBC 7.8 (4.23-9.07) x10^3/uL RBC 5.31 (4.63-6.08) x10^6/uL Hgb 16.3 (13.7-17.5) g/dL Hct 47.3 (40.1-51.0) % MCV 89.1 (79.0-92.2) fL MCH 30.7 (25.7-32.2) pg MCHC 34.5 (32.3-36.5) g/dL RDW 12.5 (11.6-14.4) % Plt Count 189 (163-337) x10^3/uL MPV 9.2 L (9.4-12.4) fL Gran % 60.4 (34.0-67.9) % Immature Gran % (Auto) 0.3 (0.001-0.429) % Nucleat RBC Rel Count 0.0 (0.00-0.2) % Eos # (Auto) 0.42 (0.04-0.54) x10^3/uL Immature Gran # (Auto) 0.02 (0.001-0.031) x10^3u/L Absolute Lymphs (auto) 1.93 (1.32-3.57) x10^3/uL Absolute Monos (auto) 0.66 (0.30-0.82) x10^3/uL Absolute Nucleated RBC 0.00 (0.00-0.012) x10^3u/L Lymphocytes % 24.9 (21.8-53.1) % Monocytes % 8.5 (5.3-12.2) % Eosinophils % 5.4 (0.8-7.0) % Basophils % 0.5 (0.2-1.2) % Absolute Granulocytes 4.68 (1.78-5.38) x10^3/uL Basophils # 0.04 (0.01-0.08) x10^3/uL PT 10.9 (9.4-12.5) SECONDS INR 0.97 (0.8-3.0) APTT 23.1 L (25.1-36.5) SECONDS Sodium 137 (135-145) mmol/L Potassium 3.7 (3.5-5.1) mmol/L Chloride 106 (98-107) mmol/L Carbon Dioxide 24 (22-30) mmol/L Anion Gap 10.7 (5-15) MEQ/L BUN 13 (9-20) mg/dL Creatinine 1.13 (0.66-1.25) mg/dL Estimated GFR 77.2 ML/MIN Glucose 135 H (74-106) mg/dL Hemoglobin A1c (4.5-6.0) % Calcium 8.8 (8.4-10.2) mg/dL Total Bilirubin 0.30 (0.2-1.3) mg/dL AST 24 (17-59) U/L ALT 20 (0-50) U/L Alkaline Phosphatase 88 (38-126) U/L Troponin I (0.000-0.033) ng/mL Serum Total Protein 6.7 (6.3-8.2) g/dL Albumin 4.1 (3.5-5.0) g/dL 03/02/25 03/02/25 03/02/25 Range/Units 10:35 10:35 14:35 WBC (4.23-9.07) x10^3/uL RBC (4.63-6.08) x10^6/uL Hgb (13.7-17.5) g/dL Hct (40.1-51.0) % MCV (79.0-92.2) fL MCH (25.7-32.2) pg MCHC (32.3-36.5) g/dL RDW (11.6-14.4) % Plt Count (163-337) x10^3/uL MPV (9.4-12.4) fL Gran % (34.0-67.9) % Immature Gran % (Auto) (0.001-0.429) % Nucleat RBC Rel Count (0.00-0.2) % Eos # (Auto) (0.04-0.54) x10^3/uL Immature Gran # (Auto) (0.001-0.031) x10^3u/L Absolute Lymphs (auto) (1.32-3.57) x10^3/uL Absolute Monos (auto) (0.30-0.82) x10^3/uL Absolute Nucleated RBC (0.00-0.012) x10^3u/L Lymphocytes % (21.8-53.1) % Monocytes % (5.3-12.2) % Eosinophils % (0.8-7.0) % Basophils % (0.2-1.2) % Absolute Granulocytes (1.78-5.38) x10^3/uL Basophils # (0.01-0.08) x10^3/uL PT (9.4-12.5) SECONDS INR (0.8-3.0) APTT (25.1-36.5) SECONDS Sodium (135-145) mmol/L Potassium (3.5-5.1) mmol/L Chloride (98-107) mmol/L Carbon Dioxide (22-30) mmol/L Anion Gap (5-15) MEQ/L BUN (9-20) mg/dL Creatinine (0.66-1.25) mg/dL Estimated GFR ML/MIN Glucose (74-106) mg/dL Hemoglobin A1c 5.32 (4.5-6.0) % Calcium (8.4-10.2) mg/dL Total Bilirubin (0.2-1.3) mg/dL AST (17-59) U/L ALT (0-50) U/L Alkaline Phosphatase (38-126) U/L Troponin I < 0.012 < 0.012 (0.000-0.033) ng/mL Serum Total Protein (6.3-8.2) g/dL Albumin (3.5-5.0) g/dL 03/02/25 Range/Units 18:16 WBC (4.23-9.07) x10^3/uL RBC (4.63-6.08) x10^6/uL Hgb (13.7-17.5) g/dL Hct (40.1-51.0) % MCV (79.0-92.2) fL MCH (25.7-32.2) pg MCHC (32.3-36.5) g/dL RDW (11.6-14.4) % Plt Count (163-337) x10^3/uL MPV (9.4-12.4) fL Gran % (34.0-67.9) % Immature Gran % (Auto) (0.001-0.429) % Nucleat RBC Rel Count (0.00-0.2) % Eos # (Auto) (0.04-0.54) x10^3/uL Immature Gran # (Auto) (0.001-0.031) x10^3u/L Absolute Lymphs (auto) (1.32-3.57) x10^3/uL Absolute Monos (auto) (0.30-0.82) x10^3/uL Absolute Nucleated RBC (0.00-0.012) x10^3u/L Lymphocytes % (21.8-53.1) % Monocytes % (5.3-12.2) % Eosinophils % (0.8-7.0) % Basophils % (0.2-1.2) % Absolute Granulocytes (1.78-5.38) x10^3/uL Basophils # (0.01-0.08) x10^3/uL PT (9.4-12.5) SECONDS INR (0.8-3.0) APTT (25.1-36.5) SECONDS Sodium (135-145) mmol/L Potassium (3.5-5.1) mmol/L Chloride (98-107) mmol/L Carbon Dioxide (22-30) mmol/L Anion Gap (5-15) MEQ/L BUN (9-20) mg/dL Creatinine (0.66-1.25) mg/dL Estimated GFR ML/MIN Glucose (74-106) mg/dL Hemoglobin A1c (4.5-6.0) % Calcium (8.4-10.2) mg/dL Total Bilirubin (0.2-1.3) mg/dL AST (17-59) U/L ALT (0-50) U/L Alkaline Phosphatase (38-126) U/L Troponin I < 0.012 (0.000-0.033) ng/mL Serum Total Protein (6.3-8.2) g/dL Albumin (3.5-5.0) g/dL Radiology Exams: Radiology Procedures Category Date Time Status CT ANGIOGRAPHY NECK [CT] Stat Exams 03/02/25 13:41 Completed CTA HEAD W AND/OR WO CONTRAST [CT] Stat Exams 03/02/25 13:41 Completed ECHO W/2D AND DOPPLER [US] Routine Exams 03/04/25 05:00 Ordered HEAD WITHOUT CONTRAST [CT] Routine Exams 03/03/25 13:00 Ordered HEAD WITHOUT CONTRAST [CT] Stat Exams 03/02/25 10:30 Completed Medications: Medications Generic Name Dose Route Start Last Admin Trade Name Freq PRN Reason Stop Dose Admin Acetaminophen 650 mg 03/02/25 13:47 Acetaminophen 325 Mg Tablet PO 04/01/25 13:46 Q4H PRN PRN PAIN, FEVER, HEADACHE Aspirin 81 mg 03/03/25 10:00 Aspirin 81 Mg Tablet.Ec PO 04/02/25 09:59 QAM MAYELIN Atorvastatin Calcium 80 mg 03/02/25 13:44 03/02/25 15:01 Atorvastatin Calcium 40 Mg Tablet PO 04/01/25 13:43 80 mg DAILY MAYELIN Administration Clopidogrel Bisulfate 75 mg 03/03/25 10:00 Clopidogrel Bisulfate 75 Mg Tablet PO 04/02/25 09:59 DAILY MAYELIN Nicardipine HCl 25 mg/ Sodium 250 mls @ 50 mls/hr 03/02/25 12:21 03/02/25 23:02 Chloride IV 04/01/25 12:20 0 mg/hr .Q5H PRN 0 mls/hr HYPERTENSION Titration Protocol Nicotine 21 mg 03/02/25 14:00 03/02/25 14:57 Nicotine 21 Mg/Patch Patch TOP 04/01/25 13:59 Not Given Q24H10 [facility] Ondansetron HCl 4 mg 03/02/25 13:47 Ondansetron Hcl 4 Mg/2 Ml Vial IV 04/01/25 13:46 Q6H PRN PRN NAUSEA/VOMITING Discontinued Medications Generic Name Dose Route Start Last Admin Trade Name Freq PRN Reason Stop Dose Admin Clopidogrel Bisulfate 300 mg 03/02/25 13:41 03/02/25 14:59 Clopidogrel Bisulfate 75 Mg Tablet PO 03/02/25 13:42 300 mg STAT ONE Administration Sodium Chloride Confirm 03/02/25 12:32 Sodium Chloride 0.9% 250 Ml Administered 03/02/25 12:33 Dose 250 mls @ ud IV .STK-MED ONE Nicardipine HCl Confirm 03/02/25 12:32 Nicardipine Hcl 25mg/10ml Vial Administered 03/02/25 12:33 Dose 25 mg IV .[place] Assessment/Plan (1) Hypertensive urgency Current Visit: Yes Status: Acute Assessment & Plan: -Presenting BP >210/120, peaking at 230/141 mmHg. -Nicardipine infusion initiated; titrate to goal systolic 365241 mmHg. -Continuous cardiac monitoring; arterial line placement if feasible. -Avoid rapid overcorrection to maintain cerebral perfusion given ischemic stroke. -Transition to oral antihypertensives once stabilized. 03/03: -BP now at target systolic <180 following discontinuation of nicardipine infusion per neurology recommendations -Home regimen adjusted: losartan 100 mg daily, hydralazine 100 mg TID, HCTZ 25 mg daily added. -Discontinued furosemide. -Continue to monitor BP closely with goal systolic <180. Code(s): I16.0 - HYPERTENSIVE URGENCY (2) Stroke-like symptoms Current Visit: Yes Status: Acute Assessment & Plan: -Symptom onset >24 hours prior; outside reperfusion therapy window. -CT head: no acute hemorrhage, but prior craniotomy/clip with chronic encephalomalacia. -MRI contraindicated due to supraclinoid aneurysm clip. -CTA head/neck ordered for vascular evaluation -Started on dual antiplatelet therapy (aspirin + clopidogrel) per neurology.- Plavix 300mg loading dose, then 75mg daily there after/ASA -Admit ICU for q1h neuro checks, continue DAPT, and trend CT imaging for stability. -If CTA unrevealing, consider repeat CT at 24 hours to exclude evolving infarct. -Neurology to follow -Nicardipine drip per neurology for goal systolic BP 140-180 03/03: -CTA head and neck unremarkable. -Repeat head CT scheduled today to assess for interval changes. -Neurology to be re-consulted once imaging results are available- appreciate further recommendations -Continue neuro checks and monitor for any acute deterioration. -A1c WNL -Lipid WNL -Nicardipine drip dc'd- at goal systolic BP < 180- see plan above -Continue DAPT with plavix/ASA - Code(s): R29.90 - UNSPECIFIED SYMPTOMS AND SIGNS INVOLVING THE NERVOUS SYSTEM (3) History of cerebral aneurysm repair Current Visit: Yes Status: Acute Assessment & Plan: -Prior supraclinoid clip documented on CT. -MRI contraindicated unless operative notes confirm MRI-compatible clip type. -Follow stroke pathway with CT/CTA imaging only -Patient states he does not follow up with neurology Code(s): Z98.890 - OTHER SPECIFIED POSTPROCEDURAL STATES; Z86.79 - PERSONAL HISTORY OF OTHER DISEASES OF THE CIRCULATORY SYSTEM (4) CAD (coronary artery disease) Current Visit: Yes Status: Acute Assessment & Plan: -Currently on aspirin, now transitioned to DAPT - currently on statin -Monitor for angina or troponin rise given hypertensive stress. -Outpatient cardiology follow-up after acute neurologic stabilization. Code(s): I25.10 - ATHSCL HEART DISEASE OF [place] CORONARY ARTERY W/O ANG PCTRS (5) HTN (hypertension) Current Visit: Yes Status: Acute Assessment & Plan: -Long-standing, poorly controlled -patient states systolic BP normally in the 200's -Review home antihypertensives once stabilized. -Adjust oral regimen prior to discharge for long-term BP control. 03/03: -see hypertensive urgency above Code(s): I10 - ESSENTIAL (PRIMARY) HYPERTENSION (6) Smoker Current Visit: Yes Status: Acute Assessment & Plan: -Major risk factor for vascular disease. -Provide cessation counseling once clinically stable; consider nicotine replacement. VTE: Plavix/ASA PPI: protonix Dispo: 1-2 days Code status: Full Code Code(s): F17.200 - NICOTINE DEPENDENCE, UNSPECIFIED, UNCOMPLICATED Code(s): I16.0 - HYPERTENSIVE URGENCY (2) Stroke-like symptoms Current Visit: Yes Status: Acute Code(s): R29.90 - UNSPECIFIED SYMPTOMS AND SIGNS INVOLVING THE NERVOUS SYSTEM (3) History of cerebral aneurysm repair Current Visit: Yes Status: Acute Code(s): Z98.890 - OTHER SPECIFIED POSTPROCEDURAL STATES; Z86.79 - PERSONAL HISTORY OF OTHER DISEASES OF THE CIRCULATORY SYSTEM (4) CAD (coronary artery disease) Current Visit: Yes Status: Acute Code(s): I25.10 - ATHSCL HEART DISEASE OF [place] CORONARY ARTERY W/O ANG PCTRS (5) HTN (hypertension) Current Visit: Yes Status: Acute Code(s): I10 - ESSENTIAL (PRIMARY) HYPERTENSION (6) Smoker Current Visit: Yes Status: Acute Code(s): F17.200 - NICOTINE DEPENDENCE, UNSPECIFIED, UNCOMPLICATED
[2025-03-03 05:54] LABS: BASOPHIL % 0.4 % (0.2-1.2); Basophil (Absolute #) 0.03 x10^3/uL (0.01-0.08); Eosinophil (Absolute #) 0.27 x10^3/uL (0.04-0.54); Hematocrit 48.0 % (40.1-51.0); Hemoglobin 16.8 g/dL (13.7-17.5); IMMATURE GRAN # 0.02 x10^3u/L (0.001-0.031); IMMATURE GRAN % 0.3 % (0.001-0.429); Lymphocyte (Absolute #) 1.52 x10^3/uL (1.32-3.57); Mean Corpuscular Hemoglobin 30.6 pg (25.7-32.2); Mean Corpuscular Hgb Concent. 35.0 g/dL (32.3-36.5); Monocyte (Absolute #) 0.61 x10^3/uL (0.30-0.82); NUCLEATED RBC # 0.00 x10^3u/L (0.00-0.012); NUCLEATED RBC % 0.0 % (0.00-0.2); Platelet Count 200 x10^3/uL (163-337); Red Blood Count 5.49 x10^6/uL (4.63-6.08); White Blood Count 7.8 x10^3/uL (4.23-9.07)
[2025-03-03 06:18] LABS: Calcium 8.7 mg/dL (8.4-10.2); Carbon Dioxide 25.0 mmol/L (22-30); Creatinine 1 1.11 mg/dL (0.66-1.25); EST GLOMERULAR FILTRATION RATE 78.9 ML/MIN; Glucose 102.0 mg/dL (74-106); Potassium 3.9 mmol/L (3.5-5.1); SGOT/AST 24.0 U/L (17-59); SGPT/ALT 16.0 U/L (0-50); Total Protein 6.5 g/dL (6.3-8.2)
[2025-03-03 07:23] LABS: Cholesterol 115.0 mg/dL (50-200); LDL, DIRECT 70.0 mg/dL (30-100); TRIGLYCERIDE 103.0 mg/dL (30-150)
[2025-03-03] MEDS: Imdur 60MG PO SCH (10:00)
[2025-03-03] MEDS: Cozaar 50 MG PO SCH (10:00)
[2025-03-03] MEDS: NORVASC 5 MG PO SCH (10:00)
[2025-03-03] MEDS: ECOTRIN 81 MG PO SCH (10:00)
[2025-03-03] MEDS: hydroDIURIL 25 MG PO SCH (10:00)
[2025-03-03] MEDS: PLAVIX Tablet PO SCH (10:00)
[2025-03-03] MEDS: COREG 12.5 MG PO SCH (10:00)
[2025-03-03] MEDS: Apresoline 25 MG TABLET PO SCH (10:01)
--- NOTE | 2025-03-03 11:20 | XRAY ---
CLINICAL HISTORY: stroke like symptoms COMPARISON: 03/02/2025. TECHNIQUE: Axial non-contrast CT scan of the brain was performed from the skull base to the high parietal region. One of the following dose reduction techniques was utilized for this exam: automated exposure control, adjustment of the mA and/or kV according to patient size, or use of iterative reconstruction. FINDINGS: Brain Parenchyma: There is left inferior frontal lobe volume loss with a hypoattenuating region, suggesting chronic infarction, likely secondary to prior intervention. There is no evidence of acute infarct, hemorrhage, or mass effect. There are no abnormal areas of hyperattenuation. Ventricular System: A prominent ventricular system is noted, denoting central atrophic changes. There is no evidence of hydrocephalus. Subarachnoid Spaces: A left supraclinoid surgical clip is noted. Capacious CSF spaces are noted, denoting cortical atrophic changes. There is no evidence of subarachnoid hemorrhage or extra-axial fluid collections. Cerebellum and Brainstem: Normal size and attenuation are noted. No masses, lesions, or areas of abnormal attenuation are identified. Orbits: The globes, optic nerves, and extraocular muscles demonstrate a normal appearance. There is no evidence of orbital masses or abnormal attenuation. Sinuses: Minimal right ethmoidal and bilateral maxillary mucosal thickening is present. Nasal septum deviation is noted. Mastoid Air Cells: The mastoid air cells are clear. There is no evidence of mastoiditis. Skull and Meninges: A left frontotemporal craniotomy is noted. IMPRESSION: 1. There is no evidence of acute intracranial hemorrhage or abnormality. 2. Stable appearance of mild brain involutional changes. 3. Stable appearance of left inferior frontal lobe encephalomalacia from prior intervention. 4. Stable appearance of the left supraclinoid surgical clip. A left frontotemporal craniotomy is noted. 5. Early changes of a stroke may not be detected on a CT scan. If there is strong clinical suspicion of stroke, then suggest MRI with diffusion-weighted imaging. Electronically Signed by: Roosevelt Mcclure MD. (03/03/2025 11:19:35 EDT)
[2025-03-03] MEDS: TYLENOL 325 MG PO PRN (20:56)
[2025-03-03 22:32] VITALS: TEMP 97.8
[2025-03-04 05:11] LABS: BASOPHIL % 0.6 % (0.2-1.2); Basophil (Absolute #) 0.05 x10^3/uL (0.01-0.08); Eosinophil (Absolute #) 0.51 x10^3/uL (0.04-0.54); Hematocrit 44.8 % (40.1-51.0); Hemoglobin 15.3 g/dL (13.7-17.5); IMMATURE GRAN # 0.03 x10^3u/L (0.001-0.031); IMMATURE GRAN % 0.4 % (0.001-0.429); Lymphocyte (Absolute #) 1.99 x10^3/uL (1.32-3.57); Mean Corpuscular Hemoglobin 30.4 pg (25.7-32.2); Mean Corpuscular Hgb Concent. 34.2 g/dL (32.3-36.5); Monocyte (Absolute #) 0.68 x10^3/uL (0.30-0.82); NUCLEATED RBC # 0.00 x10^3u/L (0.00-0.012); NUCLEATED RBC % 0.0 % (0.00-0.2); Platelet Count 187 x10^3/uL (163-337); Red Blood Count 5.03 x10^6/uL (4.63-6.08); White Blood Count 8.2 x10^3/uL (4.23-9.07)
[2025-03-04 05:35] LABS: Calcium 8.6 mg/dL (8.4-10.2); Carbon Dioxide 22.0 mmol/L (22-30); Creatinine 1 1.17 mg/dL (0.66-1.25); EST GLOMERULAR FILTRATION RATE 74.1 ML/MIN; Glucose 98.0 mg/dL (74-106); Potassium 4.0 mmol/L (3.5-5.1); SGOT/AST 18.0 U/L (17-59); SGPT/ALT 15.0 U/L (0-50); Total Protein 6.0 g/dL (6.3-8.2)
[2025-03-04 06:04] VITALS: O2SAT 98
--- NOTE | 2025-03-04 12:59 | PCM.DS ---
Discharge Summary Date of Admission: 03/02/25 12:58 Date of Discharge: 03/04/25 Admitting Physician: EMILY LINO MD Consults: Consults on Case 03/03/25 12:48 Consult Neurology ROUTINE Primary Care Provider: NO FAMILY DOCTOR Allergies Allergies No Known Drug Allergies Allergy (Unverified 03/02/25 10:40) Hospital Summary - Hospital Course Hospital Course: A 55-year-old male with a history of hyperlipidemia, hypertension, tobacco use, and prior cerebral aneurysm repair with left frontotemporal craniotomy and surgical clip placement presented to the ED on March 02, 2025, with acute-onset left-sided weakness and numbness that began the previous morning. He initially attributed the symptoms to sleeping incorrectly but sought care after they persisted without improvement. On presentation, he was found to have critically elevated blood pressure (up to 230/141 mmHg) and left-sided motor and sensory deficits. Initial CT head showed no acute hemorrhage or large vessel infarct, but noted chronic postsurgical changes. Due to a prior aneurysm clip, MRI was contraindicated, and teleneurology recommended CT angiography, blood pressure control with IV nicardipine, and initiation of dual antiplatelet therapy. He was admitted to the ICU for close neurologic and hemodynamic monitoring. By 03/03, his blood pressure was controlled, and nicardipine was discontinued. Antihypertensives were optimized with increases in losartan and hydralazine, and hydrochlorothiazide was added. CTA of the head and neck was unremarkable, and follow-up CT head was scheduled. On 03/04, he continued to have persistent left- sided weakness. Neurology was re-consulted and outpatient follow-up arranged. PT and OT evaluations were planned, and a walker was ordered for home use. He is scheduled for an echocardiogram and will require outpatient cardiology follow-up for management of longstanding, uncontrolled hypertension. Discharge is anticipated pending blood pressure stability. Neurology re-consulted to f/u on CT head results with pt. - Vitals & Intake/Output Vital Signs: Vital Signs Temperature 97.8 F 03/04/25 04:00 Pulse Rate 71 03/04/25 12:46 Respiratory Rate 25 H 03/04/25 12:46 Blood Pressure 144/96 03/04/25 12:46 O2 Sat by Pulse Oximetry 98 03/04/25 10:00 Intake & Output: Intake & Output 03/02/25 03/03/25 03/04/25 10/07/25 11:59 11:59 11:59 11:59 Intake Total 1636 9296 Output Total 6860 975 Balance -1114 1251 Weight 86.183 kg 82.1 kg 88.3 kg - Lab Result Diagrams: 03/04/25 05:00 03/04/25 05:00 Lab Results-Last 24 Hrs: Lab Results-Last 24 Hours 03/04/25 03/04/25 Range/Units 05:00 05:00 WBC 8.2 (4.23-9.07) x10^3/uL RBC 5.03 (4.63-6.08) x10^6/uL Hgb 15.3 (13.7-17.5) g/dL Hct 44.8 (40.1-51.0) % MCV 89.1 (79.0-92.2) fL MCH 30.4 (25.7-32.2) pg MCHC 34.2 (32.3-36.5) g/dL RDW 12.6 (11.6-14.4) % Plt Count 187 (163-337) x10^3/uL MPV 9.5 (9.4-12.4) fL Gran % 60.2 (34.0-67.9) % Immature Gran % (Auto) 0.4 (0.001-0.429) % Nucleat RBC Rel Count 0.0 (0.00-0.2) % Eos # (Auto) 0.51 (0.04-0.54) x10^3/uL Immature Gran # (Auto) 0.03 (0.001-0.031) x10^3u/L Absolute Lymphs (auto) 1.99 (1.32-3.57) x10^3/uL Absolute Monos (auto) 0.68 (0.30-0.82) x10^3/uL Absolute Nucleated RBC 0.00 (0.00-0.012) x10^3u/L Lymphocytes % 24.3 (21.8-53.1) % Monocytes % 8.3 (5.3-12.2) % Eosinophils % 6.2 (0.8-7.0) % Basophils % 0.6 (0.2-1.2) % Absolute Granulocytes 4.92 (1.78-5.38) x10^3/uL Basophils # 0.05 (0.01-0.08) x10^3/uL Sodium 130 L (135-145) mmol/L Potassium 4.0 (3.5-5.1) mmol/L Chloride 103 (98-107) mmol/L Carbon Dioxide 22 (22-30) mmol/L Anion Gap 8.9 (5-15) MEQ/L BUN 24 H (9-20) mg/dL Creatinine 1.17 (0.66-1.25) mg/dL Estimated GFR 74.1 ML/MIN Glucose 98 (74-106) mg/dL Calcium 8.6 (8.4-10.2) mg/dL Total Bilirubin 0.10 L (0.2-1.3) mg/dL AST 18 (17-59) U/L ALT 15 (0-50) U/L Alkaline Phosphatase 81 (38-126) U/L Serum Total Protein 6.0 L (6.3-8.2) g/dL Albumin 3.6 (3.5-5.0) g/dL - Radiology Exams Ordered Rad Exams-Entire Visit: Radiology Procedures Category Date Time Status CT ANGIOGRAPHY NECK [CT] Stat Exams 03/02/25 13:41 Completed CTA HEAD W AND/OR WO CONTRAST [CT] Stat Exams 03/02/25 13:41 Completed ECHO W/2D AND DOPPLER [US] Routine Exams 03/04/25 05:00 Ordered HEAD WITHOUT CONTRAST [CT] Stat Exams 03/03/25 13:00 Completed - Procedures and Test Procedures and Tests throughout Hospitalization: Therapy Orders & Screens 03/02/25 13:47 PT Eval & Treat ( Order) ONCE Reason for Eval:: weakness left side Diagnosis: hypertensive urgency/ stroke r/o OT Eval and Treat (MD Order) ONCE Comment: Physician Instructions: Reason For Exam: Diagnosis: hypertensive urgency/ stroke r/o 03/02/25 15:40 Smoking Cessation Education ONCE Comment: Diagnosis: hypertensive urgency/ stroke r/o Smoking Status: Current every day smoker Have you smoked in the past 12 months: Yes Approximately how many cigarettes per day: 20 Do you dip or chew tobacco: No Discharge Exam General Appearance: no apparent distress, alert Neurologic Exam: alert, oriented x 3, cooperative, tortilla maker II-XII nml as tested, normal mood/affect, nml cerebellar function, sensation nml, motor weakness (Left sided arm and leg weakness), No motor deficits Eye Exam: PERRL, EOMI, eyes nml inspection Ears, Nose, Throat Exam: normal ENT inspection, pharynx normal, moist mucous membranes Neck Exam: normal inspection, non-tender, supple, full range of motion Respiratory Exam: normal breath sounds, lungs clear, No respiratory distress Cardiovascular Exam: regular rate/rhythm, normal heart sounds Gastrointestinal/Abdomen Exam: soft, No tenderness, No mass Male Genitalia Exam: deferred Rectal Exam: deferred Back Exam: normal inspection, normal range of motion, No CVA tenderness, No vertebral tenderness Extremity Exam: normal inspection, normal range of motion Skin Exam: normal color, warm, dry Final Diagnosis/Problem List - Final Discharge Diagnosis/Problem (1) Hypertensive urgency Current Visit: Yes Status: Resolved Assessment & Plan: - resolved - Home meds resumed - Will need OP f/u with cardiology Code(s): I16.0 - HYPERTENSIVE URGENCY (2) Stroke-like symptoms Current Visit: Yes Status: Acute Assessment & Plan: -Symptom onset >24 hours prior; outside reperfusion therapy window. -CT head: no acute hemorrhage, but prior craniotomy/clip with chronic encephalomalacia. -MRI contraindicated due to supraclinoid aneurysm clip. -CTA head/neck ordered for vascular evaluation -Started on dual antiplatelet therapy (aspirin + clopidogrel) per neurology.- Plavix 300mg loading dose, then 75mg daily there after/ASA -Admit ICU for q1h neuro checks, continue DAPT, and trend CT imaging for stability. -If CTA unrevealing, consider repeat CT at 24 hours to exclude evolving infarct. -Neurology to follow- reviewed note and agree with plan of care. -Nicardipine drip per neurology for goal systolic BP 140-180 -CTA head and neck unremarkable 03/02 -Repeat head CT: 03/03 1. There is no evidence of acute intracranial hemorrhage or abnormality. 2. Stable appearance of mild brain involutional changes. 3. Stable appearance of left inferior frontal lobe encephalomalacia from prior intervention. 4. Stable appearance of the left supraclinoid surgical clip. A left frontotemporal craniotomy is noted. 5. Early changes of a stroke may not be detected on a CT scan. If there is strong clinical suspicion of stroke, then suggest MRI with diffusion-weighted imaging -Neurology re-consulted evening of 03/03 and no new recs. -Continue neuro checks and monitor for any acute deterioration. -Lipid panel reviewed- HDL 28- high dose statin started- education provided on diet and exercise control -Nicardipine drip dc'd 03/02- at goal systolic BP < 180- see plan above -Continue DAPT with plavix/ASA - Per neuro ASA 81mg daily and plavix 75mg daily x21 days, then STOP ASA and continue plavix. -SBP< 140, DBP< 90 PT/OT eval and f/u OP- walker ordered for home. - A1C 5.32 - F/U with Neuro OP - ECHO today - will need OP f/u with cardiology for results Code(s): R29.90 - UNSPECIFIED SYMPTOMS AND SIGNS INVOLVING THE NERVOUS SYSTEM (3) History of cerebral aneurysm repair Current Visit: Yes Status: Chronic Assessment & Plan: -Prior supraclinoid clip documented on CT. - MRI contraindicated unless operative notes confirm MRI-compatible clip type. - Follow stroke pathway with CT/CTA imaging only - Patient states he does not follow up with neurology - appointment made Code(s): Z98.890 - OTHER SPECIFIED POSTPROCEDURAL STATES; Z86.79 - PERSONAL HISTORY OF OTHER DISEASES OF THE CIRCULATORY SYSTEM (4) CAD (coronary artery disease) Current Visit: Yes Status: Chronic Assessment & Plan: -Currently on aspirin, now transitioned to DAPT - currently on statin - Monitor for angina or troponin rise given hypertensive stress. - Outpatient cardiology follow-up after acute neurologic stabilization.- f/u appointment made Code(s): I25.10 - ATHSCL HEART DISEASE OF [place] CORONARY ARTERY W/O ANG PCTRS (5) HTN (hypertension) Current Visit: Yes Status: Chronic Assessment & Plan: - Bp improved this afternoon and stable Code(s): I10 - ESSENTIAL (PRIMARY) HYPERTENSION (6) Smoker Current Visit: Yes Status: Chronic Assessment & Plan: -Major risk factor for vascular disease. - Provided cessation counseling - Nicotine patch D/C plan of care time: > 46 minutes D/C new meds: ASA, Plavix, Lipitor, HCTZ, Losartan Code(s): F17.200 - NICOTINE DEPENDENCE, UNSPECIFIED, UNCOMPLICATED - Discharge Discharge Date: 03/04/25 Disposition: Home, Self-Care Condition: Stable Prescriptions: New Losartan Potassium 50 mg [Cozaar 50 MG] 100 mg PO DAILY 30 Days #30 tablet Aspirin EC 81 mg [Ecotrin 81 mg] 81 mg PO QAM 21 Days #21 tablet Hydrochlorothiazide 25 mg [hydroDIURIL 25 MG] 25 mg PO DAILY 30 Days #30 tablet Atorvastatin Calcium [Lipitor 40Mg] 80 mg PO DAILY 30 Days #30 tablet Clopidogrel Bisulfate [Plavix] 75 mg PO DAILY 30 Days #30 tablet Continue carvediloL [Carvedilol] 25 mg PO BID Varenicline Tartrate [Chantix] 1 mg PO BID Isosorbide Mononitrate [Isosorbide Mononitrate ER] 120 mg PO DAILY Furosemide 20 mg [Lasix 20 mg] 20 mg PO DAILY Aspirin EC 81 mg [Ecotrin 81 mg] 81 mg PO DAILY Amlodipine Besylate 10 mg PO DAILY Discontinued Losartan Potassium 25 mg PO DAILY Hydralazine HCl 50 mg PO TID Atorvastatin Calcium [Lipitor] 40 mg PO HS Outpatient Orders: Occupational Therapy Eval & Treat Facility: [facility]. Hosp, Location: OCCUPATIONAL THERAPY Physical Therapy Eval & Treat Facility: [facility]. Hosp, Location: PHYSICAL THERAPY Instructions: Stroke, High blood pressure in adults, Controlling your blood pressure through lifestyle, High blood pressure emergencies Additional Instructions: YOUR FIRST APT WITH THERAPY DEPARTMENT IS 03/08/25@ 10, YOU WILL HAVE PT AT 10 AND OT AT 11 APPT CARDIO- DR.IRFAN MADRIGAL 03/15/25 @ 10:[address] [place] APPT NEURO- 03/06/25 @ 09[address] [place] Follow up with: SHEREE BARILLAS MD [Primary Care Provider, [facility]] - 03/12/25 11:20 am
[2025-03-04] MEDS: LASIX 20 MG PO SCH (14:16)
[2025-03-04] MEDS: Apresoline 25 MG TABLET PO SCH (15:34)
[2025-03-04 16:58] VITALS: BP 119/100; PULSE 76; RESP 15
[2025-03-04] MEDS ORDERED: Apresoline 25 MG TABLET PO SCH (17:00)
== END 2025-03-04 16:35 | disposition home or self-care (01) ==
LOC: ED 10:14 → INTOOBSV 12:58 → ICU 12:58
PROVIDERS: ADMIT Internal Medicine; ATTEND Internal Medicine
DX: I16.0 Hypertensive urgency (principal); R29.90 Unspecified symptoms and signs involving the nervous system; I10 Essential (primary) hypertension; R20.0 Anesthesia of skin; G83.14 Monoplegia of lower limb affecting left nondominant side; G83.24 Monoplegia of upper limb affecting left nondominant side; E78.5 Hyperlipidemia, unspecified; F17.200 Nicotine dependence, unspecified, uncomplicated; Z86.79 Personal history of other diseases of the circulatory system; Z98.890 Other specified postprocedural states; I25.10 Atherosclerotic heart disease of native coronary artery without angina pectoris; Z79.899 Other long term (current) drug therapy
CPT/HCPCS: 36415; 70450; 70496; 70498; 80053; 80061; 82947; 83036; 83721; 84484; 85025; 85610; 85730; 93005; 93041; 93268; 93306; 97161; 97165; 99291; 99292; G0378; Q3014

== ENCOUNTER 2025-03-26 13:28 | Observation (INO) | payer BC ==
--- NOTE | 2025-03-26 14:48 | ERPHSYRPT ---
- History of Present Illness Time Seen by Provider: 03/26/25 14:47 Source: patient Exam Limitations: no limitations Patient Subjective Stated Complaint: patient states he was sent here from PT for high BP, he says his pressure always runs high he feels fine Triage Nursing Assessment: patient is alert and orientedx3, able to ambulate by self, gait is unsteady but patient says this is his normal post stroke he is still off balance when ambualting thats why he is in Physical THerapy. Recent stroke beginning of february. patients denies any new symtpoms or coplaints states PT sent him here becauuse of his elevated blood pressure. Physician History: 55-year-old male history of hypertension coronary artery disease current smoker presents to our ED as a referral from physical therapy because of high blood pressure. Patient is otherwise asymptomatic. Patient has a history of a stroke which is why he is in physical therapy. Patient receiving physical therapy for stroke he had in February. No chest pain no shortness of breath. No nausea vomiting or diaphoresis. Patient voices no other complaints or concerns at this time. Portions of this note were created with voice recognition technology. There may be grammatical, spelling, punctuation or sound alike errors Timing/Duration: today Severity: moderate Modifying Factors: Improves With: nothing Associated Symptoms: denies symptoms Allergies/Adverse Reactions: No Known Drug Allergies Allergy (Verified 03/26/25 14:18) Home Medications: Amlodipine Besylate 10 mg PO DAILY 03/02/25 [History] Aspirin EC 81 mg [Ecotrin 81 mg] 81 mg PO DAILY 03/02/25 [History] Furosemide 20 mg [Lasix 20 mg] 20 mg PO DAILY 03/02/25 [History] Isosorbide Mononitrate [Isosorbide Mononitrate ER] 120 mg PO DAILY 03/02/25 [History] Varenicline Tartrate [Chantix] 1 mg PO BID 03/02/25 [History] carvediloL [Carvedilol] 25 mg PO BID 03/02/25 [History] Hx Tetanus, Diphtheria Vaccination/Date Given: Yes Hx Influenza Vaccination/Date Given: No Hx Pneumococcal Vaccination/Date Given: No Immunizations Up to Date: Yes Travel Risk - International Travel Have you traveled outside of the country in past 3 weeks: No - Emerging Infectious Disease Are you exhibiting symptoms associated with any current EIDs: No - Review of Systems All Other Systems: Reviewed and Negative - Past Medical History Pertinent Past Medical History: Yes Neurological History: Other Cardiac History: Coronary Artery Disease, Hypertension Respiratory History: Asthma Endocrine Medical History: No Pertinent History Musculoskeletal History: No Pertinent History Other Medical History: HX OF CEREBRAL ANEURYSM REPAIR - Past Surgical History Past Surgical History: Yes Neuro Surgical History: Other Cardiac: No Pertinent History Respiratory: No Pertinent History Gastrointestinal: No Pertinent History Genitourinary: No Pertinent History Musculoskeletal: Other Male Surgical History: No Pertinent History Other Surgical History: Brain surgery; L3-L4 fusion Significant Family History: diabetes (left frontotemporal craniotomy and supraclinoid surgical clip placement) - Social History Smoking Status: Current every day smoker Exposure to second hand smoke: Yes Drug Use: none - Social Determinants of Health Will the patient participate in the screening: Yes Do you worry about a steady place to live?: No Do you have any problems with any of the following?: No known problems In the past 12 months,have you had to go without utilities?: No Transportation Issues: No Has anyone in your support network made you feel unsafe?: No Have you or anyone in your house had to go w/o enough food: No - Nursing Vital Signs Nursing Vital Signs: Initial Vital Signs Temperature 98.3 F 03/26/25 13:28 Pulse Rate 63 03/26/25 13:28 Respiratory Rate 18 03/26/25 13:28 Blood Pressure 173/109 03/26/25 13:28 O2 Sat by Pulse Oximetry 99 03/26/25 13:28 Pain Scale Pain Intensity 0 - Physical Exam General Appearance: no apparent distress, alert Eye Exam: PERRL/EOMI, eyes nml inspection Ears, Nose, Throat Exam: normal ENT inspection, TMs normal, pharynx normal, moist mucous membranes Neck Exam: normal inspection, full range of motion Respiratory Exam: normal breath sounds, lungs clear, airway intact, No respiratory distress Cardiovascular Exam: regular rate/rhythm, normal heart sounds, normal peripheral pulses Gastrointestinal/Abdomen Exam: soft, normal bowel sounds, No tenderness, No mass Back Exam: normal inspection, normal range of motion, No CVA tenderness, No vertebral tenderness Extremity Exam: normal inspection, normal range of motion, pelvis stable Neurologic Exam: alert, oriented x 3, cooperative, normal mood/affect, sensation nml, No motor deficits Skin Exam: normal color, warm, dry, No rash Lymphatic Exam: No adenopathy SpO2 Interpretation: normal SpO2: 99 O2 Delivery: Room Air - Course Nursing assessment & vital signs reviewed: Yes EKG Interpreted by Me: RATE (61), Sinus Rhythm, NORMAL AXIS, 1st degree AV Block, NORMAL QRS - Radiology Exams Chest X-ray Interpretation: Teleradiologist Report (Portable apical lordotic chest again demonstrates normal heart and lungs with a few tiny calcified granulomas and mild focal eventration right hemidiaphragm. NO Acute findings) Ordered Tests: Active Orders 24 hr Category Date Time Status Mint Wafer Depositor STAT Care 03/26/25 15:04 Active EKG-ER Only STAT Care 03/26/25 15:03 Active IV Insertion STAT Care 03/26/25 15:03 Active Pulse Oximetry (ED) STAT Care 03/26/25 15:03 Active CHEST 1 VIEW (PORTABLE) Stat Exams 03/26/25 15:04 Completed CBC W DIFF Stat Lab 03/26/25 14:45 Completed CMP Stat Lab 03/26/25 14:45 Completed NT PRO BNPII Stat Lab 03/26/25 14:45 Completed TROPONIN Q4H Lab 03/26/25 14:45 Completed TROPONIN Q4H Lab 03/26/25 19:15 Ordered TROPONIN Q4H Lab 03/26/25 23:15 Ordered UA W/RFX UR CULTURE Stat Lab 03/26/25 16:09 Ordered Transfer Order Routine Transfer 03/26/25 Ordered Medication Summary Generic Name Dose Route Start Last Admin Trade Name Freq PRN Reason Stop Dose Admin Sodium Chloride 1,000 mls @ 100 mls/hr 03/26/25 16:00 03/26/25 16:08 Sodium Chloride 0.9% 1000 Ml IV 04/25/25 15:59 100 mls/hr .Q10H MAYELIN Administration Lab/Rad Data: Laboratory Result Diagrams 03/26/25 14:45 03/26/25 14:45 Laboratory Results 03/26/25 03/26/25 03/26/25 Range/Units 14:45 14:45 14:45 WBC 7.3 (4.23-9.07) x10^3/uL RBC 4.90 (4.63-6.08) x10^6/uL Hgb 14.8 (13.7-17.5) g/dL Hct 41.0 (40.1-51.0) % MCV 83.7 (79.0-92.2) fL MCH 30.2 (25.7-32.2) pg MCHC 36.1 (32.3-36.5) g/dL RDW 12.2 (11.6-14.4) % Plt Count 207 (163-337) x10^3/uL MPV 9.3 L (9.4-12.4) fL Gran % 56.0 (34.0-67.9) % Immature Gran % (Auto) 0.4 (0.001-0.429) % Nucleat RBC Rel Count 0.0 (0.00-0.2) % Eos # (Auto) 0.63 H (0.04-0.54) x10^3/uL Immature Gran # (Auto) 0.03 (0.001-0.031) x10^3u/L Absolute Lymphs (auto) 1.65 (1.32-3.57) x10^3/uL Absolute Monos (auto) 0.86 H (0.30-0.82) x10^3/uL Absolute Nucleated RBC 0.00 (0.00-0.012) x10^3u/L Lymphocytes % 22.5 (21.8-53.1) % Monocytes % 11.7 (5.3-12.2) % Eosinophils % 8.6 H (0.8-7.0) % Basophils % 0.8 (0.2-1.2) % Absolute Granulocytes 4.10 (1.78-5.38) x10^3/uL Basophils # 0.06 (0.01-0.08) x10^3/uL Sodium 117 L* (135-145) mmol/L Potassium 4.1 (3.5-5.1) mmol/L Chloride 87 L (98-107) mmol/L Carbon Dioxide 24 (22-30) mmol/L Anion Gap 10.9 (5-15) MEQ/L BUN 16 (9-20) mg/dL Creatinine 0.91 (0.66-1.25) mg/dL Estimated GFR 100.2 ML/MIN Glucose 97 (74-106) mg/dL Calcium 8.6 (8.4-10.2) mg/dL Total Bilirubin 0.20 (0.2-1.3) mg/dL AST 35 (17-59) U/L ALT 37 (0-50) U/L Alkaline Phosphatase 73 (38-126) U/L Troponin I < 0.012 (0.000-0.033) ng/mL NT-Pro-B Natriuret Pep 271 (<300) pg/mL Serum Total Protein 6.6 (6.3-8.2) g/dL Albumin 4.2 (3.5-5.0) g/dL - Progress Progress: improved Progress Note: 03/26/25 16:10 55-year-old male history of hypertension coronary artery disease current smoker presents to our ED as a referral from physical therapy because of high blood pressure. Patient is otherwise asymptomatic. Patient has a history of a stroke which is why he is in physical therapy. Patient receiving physical therapy for stroke he had in February. Patient observed. Patient's blood pressure gradually improved to 159/99. Patient remained asymptomatic. Laboratory workup reveals a hyponatremia. However patient states he is otherwise asymptomatic. I discussed the case with Dr. Zimmer steps admission to observation at 4:07 PM. Plan of care discussed with patient. He agrees to admission at [facility] for further evaluation and treatment. The fluids infusing to treat hyponatremia Blood pressure appears to be normalizing spontaneously. However will require further monitoring Portions of this note were created with voice recognition technology. There may be grammatical, spelling, punctuation or sound alike errors History obtained from patient. Dr. Kenny independent reviewed and interpreted the chest x-ray. This is a preliminary read. Formal read observes no acute findings. Differential diagnosis includes essential hypertension, renal disease, renal artery stenosis, medication induced hyponatremia Complexity of problem addressed is moderate acute complicated. No critical care time. Complex of data reviewed and analyzed is extensive. Test ordered chest reviewed results analyzed and correlated clinically with history and physical exam. Management discussed with hospitalist who accepts admission to observation. Risk of complication at risk of morbidity/mortality of patient management is high. Patient requires hospitalization for further evaluation and treatment. Vital stable. Time spent to admit patient is approximately 15 minutes. Plan of care established for shared decision making. No social determinants of health present to impede follow-up. Portions of this note were created with voice recognition technology. There may be grammatical, spelling, punctuation or sound alike errors 03/26/25 16:15 Counseled pt/family regarding: lab results, diagnosis, rad results - Departure Departure Disposition: Observation Clinical Impression: Hyponatremia, Hypertension Condition: Stable Critical Care Time: No Referrals: SHEREE BARILLAS MD [Primary Care Provider, [facility]] - Follow up/PCP as directed
[2025-03-26 15:08] LABS: BASOPHIL % 0.8 % (0.2-1.2); Basophil (Absolute #) 0.06 x10^3/uL (0.01-0.08); Eosinophil (Absolute #) 0.63 x10^3/uL (0.04-0.54); Hematocrit 41.0 % (40.1-51.0); Hemoglobin 14.8 g/dL (13.7-17.5); IMMATURE GRAN # 0.03 x10^3u/L (0.001-0.031); IMMATURE GRAN % 0.4 % (0.001-0.429); Lymphocyte (Absolute #) 1.65 x10^3/uL (1.32-3.57); Mean Corpuscular Hemoglobin 30.2 pg (25.7-32.2); Mean Corpuscular Hgb Concent. 36.1 g/dL (32.3-36.5); Monocyte (Absolute #) 0.86 x10^3/uL (0.30-0.82); NUCLEATED RBC # 0.00 x10^3u/L (0.00-0.012); NUCLEATED RBC % 0.0 % (0.00-0.2); Platelet Count 207 x10^3/uL (163-337); Red Blood Count 4.90 x10^6/uL (4.63-6.08); White Blood Count 7.3 x10^3/uL (4.23-9.07)
[2025-03-26 15:20] LABS: Calcium 8.6 mg/dL (8.4-10.2); Carbon Dioxide 24.0 mmol/L (22-30); Creatinine 1 0.91 mg/dL (0.66-1.25); EST GLOMERULAR FILTRATION RATE 100.2 ML/MIN; Glucose 97.0 mg/dL (74-106); Potassium 4.1 mmol/L (3.5-5.1); SGOT/AST 35.0 U/L (17-59); SGPT/ALT 37.0 U/L (0-50); Total Protein 6.6 g/dL (6.3-8.2)
[2025-03-26 15:31] LABS: NT PRO BNPII 271 pg/mL (<300); TROPONIN < 0.012 ng/mL (0.000-0.033)
--- NOTE | 2025-03-26 16:13 | XRAY ---
Indication: Hypertension. Comparison: March 10, 2011 Portable apical lordotic chest again demonstrates normal heart and lungs with a few tiny calcified granulomas and mild focal eventration right hemidiaphragm. Bony thorax intact with mild degenerative changes. No new/acute findings.
[2025-03-26 16:53] LABS: Glucose, Urine Negative (Negative); Protein,Urine Dip Negative (Negative); RBC 0-2 /HPF (0-5); WBC 0-2 /HPF (0-5)
--- NOTE | 2025-03-26 17:34 | PCM.HP ---
History of Present Illness - Chief Complaint Chief Complaint: Hypertensive urgency, hyponatremia Date: 03/26/25 History of Present Illness: is a 55 year old male with a pmhx of CAD, stroke, HTN, asthma, and prior cerebral aneurysm repair who presented to the ED 03/26/25 after being referred from physical therapy for elevated blood pressure. He is currently participating in physical therapy for gait instability following a recent ischemic stroke earlier this month. The patient reports chronic headache, but no visual disturbance, chest pain, shortness of breath, nausea, vomiting, or other new symptoms. On arrival to ED blood pressure was 173/109 but otherwise stable vitals. Physical exam revealed a well-appearing male in no acute distress, with clear lung carson, regular heart sounds, no lower extremity edema, and no new focal neurological deficits beyond baseline gait unsteadiness. Patient reports he was recently started on HCTZ. EKG demonstrated normal sinus rhythm at 61 bpm with a first-degree AV block, normal axis, and no ischemic changes. CXR showed no acute findings. Lab findings remarkable for hyponatremia (Na 117 ) with otherwise normal renal function and unremarkable complete blood count. Troponin was negative. BNP measured 271. Urinalysis was negative. The patient received IVF in the ED prior to admission for further management of hyponatremia and blood pressure control. - Review of Systems Constitutional: No Symptoms Eyes: No Symptoms Ears, Nose, & Throat: No Symptoms Respiratory: No Symptoms Cardiac: No Symptoms Abdominal/Gastrointestinal: No Symptoms Genitourinary Symptoms: No Symptoms Musculoskeletal: No Symptoms Skin: No Symptoms Neurological: Headache (chronic) Psychological: No Symptoms Endocrine: No Symptoms Hematologic/Lymphatic: No Symptoms Immunological/Allergic: No Symptoms Medications & Allergies Home Medications: Home Medication List Amlodipine Besylate 10 mg PO DAILY 03/02/25 [History Confirmed 03/26/25] Aspirin EC 81 mg [Ecotrin 81 mg] 81 mg PO DAILY 03/02/25 [History Confirmed 03/26/25] Furosemide 20 mg [Lasix 20 mg] 20 mg PO DAILY 03/02/25 [History Confirmed 03/26/25] Isosorbide Mononitrate [Isosorbide Mononitrate ER] 120 mg PO DAILY 03/02/25 [History Confirmed 03/26/25] Varenicline Tartrate [Chantix] 1 mg PO BID 03/02/25 [History Confirmed 03/26/25] carvediloL [Carvedilol] 25 mg PO BID 03/02/25 [History Confirmed 03/26/25] Aspirin EC 81 mg [Ecotrin 81 mg] 81 mg PO QAM 21 Days #21 tablet 03/04/25 [Rx Confirmed 03/26/25] Atorvastatin Calcium [Lipitor 40Mg] 80 mg PO DAILY 30 Days #30 tablet 03/04/25 [Rx Confirmed 03/26/25] Clopidogrel Bisulfate [Plavix] 75 mg PO DAILY 30 Days #30 tablet 03/04/25 [Rx Confirmed 03/26/25] Hydrochlorothiazide 25 mg [hydroDIURIL 25 MG] 25 mg PO DAILY 30 Days #30 tablet 03/04/25 [Rx Confirmed 03/26/25] Losartan Potassium 50 mg [Cozaar 50 MG] 100 mg PO DAILY 30 Days #30 tablet 03/04/25 [Rx Confirmed 03/26/25] Allergies/Adverse Reactions: Allergies Allergy/AdvReac Type Severity Reaction Status Date / Time No Known Drug Allergies Allergy Verified 03/26/25 14:18 - Past Medical History Past Medical History: Yes Neurological History: Other Cardiac History: Coronary Artery Disease, Hypertension Respiratory History: Asthma Endocrine Medical History: No Pertinent History Musculoskelatal History: No Pertinent History Comment: HX OF CEREBRAL ANEURYSM REPAIR - Past Surgical History Past Surgical History: Yes Neuro Surgical History: Other Cardiac History: No Pertinent History Respiratory Surgery: No Pertinent History GI Surgical History: No Pertinent History Genitourinary Surgical Hx: No Pertinent History Musculskeletal Surgical Hx: Other Male Surgical History: No Pertinent History Other Surgical History: Brain surgery; L3-L4 fusion Significant Family History: diabetes (left frontotemporal craniotomy and supraclinoid surgical clip placement) - Social History Smoking Status: Current every day smoker Exposure to second hand smoke: Yes Alcohol: None Drug Use: none - Social Determinants of Health Will the patient participate in the screening: Yes Do you worry about a steady place to live?: No Do you have any problems with any of the following?: No known problems In the past 12 months,have you had to go without utilities?: No Have you or anyone in your house had to go without enough: No Transportation Issues: No Has anyone in your support network made you feel unsafe?: No Does the patient want assistance with any of the above?: No - Physical Exam Vital Signs: Vital Signs - 24 hr Temp Pulse Resp BP BP Pulse Ox 03/26/25 17:16 98.0 F 65 16 187/108 95 03/26/25 17:00 60 16 166/109 98 03/26/25 16:30 61 15 164/104 98 03/26/25 16:18 99 03/26/25 16:00 173/102 97 03/26/25 15:30 154/99 98 03/26/25 15:21 97 03/26/25 15:20 97 03/26/25 15:19 97 03/26/25 13:28 98.3 F 63 18 173/109 99 General Appearance: no apparent distress Neurologic Exam: alert, oriented x 3, cooperative Eye Exam: PERRL/EOMI Ears, Nose, Throat Exam: normal ENT inspection Neck Exam: normal inspection Respiratory Exam: normal breath sounds, lungs clear Cardiovascular Exam: regular rate/rhythm, normal heart sounds Rectal Exam: deferred Back Exam: normal inspection Extremity Exam: normal inspection Skin Exam: normal color Results - Labs Lab/Micro Results: Lab Results-Last 24 Hours 03/26/25 03/26/25 03/26/25 Range/Units 14:45 14:45 14:45 WBC 7.3 (4.23-9.07) x10^3/uL RBC 4.90 (4.63-6.08) x10^6/uL Hgb 14.8 (13.7-17.5) g/dL Hct 41.0 (40.1-51.0) % MCV 83.7 (79.0-92.2) fL MCH 30.2 (25.7-32.2) pg MCHC 36.1 (32.3-36.5) g/dL RDW 12.2 (11.6-14.4) % Plt Count 207 (163-337) x10^3/uL MPV 9.3 L (9.4-12.4) fL Gran % 56.0 (34.0-67.9) % Immature Gran % (Auto) 0.4 (0.001-0.429) % Nucleat RBC Rel Count 0.0 (0.00-0.2) % Eos # (Auto) 0.63 H (0.04-0.54) x10^3/uL Immature Gran # (Auto) 0.03 (0.001-0.031) x10^3u/L Absolute Lymphs (auto) 1.65 (1.32-3.57) x10^3/uL Absolute Monos (auto) 0.86 H (0.30-0.82) x10^3/uL Absolute Nucleated RBC 0.00 (0.00-0.012) x10^3u/L Lymphocytes % 22.5 (21.8-53.1) % Monocytes % 11.7 (5.3-12.2) % Eosinophils % 8.6 H (0.8-7.0) % Basophils % 0.8 (0.2-1.2) % Absolute Granulocytes 4.10 (1.78-5.38) x10^3/uL Basophils # 0.06 (0.01-0.08) x10^3/uL Sodium 117 L* (135-145) mmol/L Potassium 4.1 (3.5-5.1) mmol/L Chloride 87 L (98-107) mmol/L Carbon Dioxide 24 (22-30) mmol/L Anion Gap 10.9 (5-15) MEQ/L BUN 16 (9-20) mg/dL Creatinine 0.91 (0.66-1.25) mg/dL Estimated GFR 100.2 ML/MIN Glucose 97 (74-106) mg/dL Calcium 8.6 (8.4-10.2) mg/dL Total Bilirubin 0.20 (0.2-1.3) mg/dL AST 35 (17-59) U/L ALT 37 (0-50) U/L Alkaline Phosphatase 73 (38-126) U/L Troponin I < 0.012 (0.000-0.033) ng/mL NT-Pro-B Natriuret Pep 271 (<300) pg/mL Serum Total Protein 6.6 (6.3-8.2) g/dL Albumin 4.2 (3.5-5.0) g/dL Urine Color (Yellow) Urine Appearance (Clear) Urine pH (4.6-8.0) Ur Specific Paradox (1.005-1.030) Urine Protein (Negative) Urine Glucose (UA) (Negative) mg/dL Urine Ketones (Negative) Urine Blood (Negative) Urine Nitrite (Negative) Urine Bilirubin (Negative) Urine Urobilinogen (0.2) mg/dL Ur Leukocyte Esterase (Negative) U Hyaline Cast (Auto) (0-2) /LPF Urine Microscopic RBC (0-5) /HPF Urine Microscopic WBC (0-5) /HPF Ur Epithelial Cells (None Seen) /HPF Urine Bacteria (None Seen) /HPF Urine Culture Reflexed (NO) 03/26/25 Range/Units 16:09 WBC (4.23-9.07) x10^3/uL RBC (4.63-6.08) x10^6/uL Hgb (13.7-17.5) g/dL Hct (40.1-51.0) % MCV (79.0-92.2) fL MCH (25.7-32.2) pg MCHC (32.3-36.5) g/dL RDW (11.6-14.4) % Plt Count (163-337) x10^3/uL MPV (9.4-12.4) fL Gran % (34.0-67.9) % Immature Gran % (Auto) (0.001-0.429) % Nucleat RBC Rel Count (0.00-0.2) % Eos # (Auto) (0.04-0.54) x10^3/uL Immature Gran # (Auto) (0.001-0.031) x10^3u/L Absolute Lymphs (auto) (1.32-3.57) x10^3/uL Absolute Monos (auto) (0.30-0.82) x10^3/uL Absolute Nucleated RBC (0.00-0.012) x10^3u/L Lymphocytes % (21.8-53.1) % Monocytes % (5.3-12.2) % Eosinophils % (0.8-7.0) % Basophils % (0.2-1.2) % Absolute Granulocytes (1.78-5.38) x10^3/uL Basophils # (0.01-0.08) x10^3/uL Sodium (135-145) mmol/L Potassium (3.5-5.1) mmol/L Chloride (98-107) mmol/L Carbon Dioxide (22-30) mmol/L Anion Gap (5-15) MEQ/L BUN (9-20) mg/dL Creatinine (0.66-1.25) mg/dL Estimated GFR ML/MIN Glucose (74-106) mg/dL Calcium (8.4-10.2) mg/dL Total Bilirubin (0.2-1.3) mg/dL AST (17-59) U/L ALT (0-50) U/L Alkaline Phosphatase (38-126) U/L Troponin I (0.000-0.033) ng/mL NT-Pro-B Natriuret Pep (<300) pg/mL Serum Total Protein (6.3-8.2) g/dL Albumin (3.5-5.0) g/dL Urine Color Yellow (Yellow) Urine Appearance Clear (Clear) Urine pH 6.5 (4.6-8.0) Ur Specific Paradox 1.010 (1.005-1.030) Urine Protein Negative (Negative) Urine Glucose (UA) Negative (Negative) mg/dL Urine Ketones Negative (Negative) Urine Blood Negative (Negative) Urine Nitrite Negative (Negative) Urine Bilirubin Negative (Negative) Urine Urobilinogen 0.2 (0.2) mg/dL Ur Leukocyte Esterase Negative (Negative) U Hyaline Cast (Auto) NONE SEEN (0-2) /LPF Urine Microscopic RBC 0-2 (0-5) /HPF Urine Microscopic WBC 0-2 (0-5) /HPF Ur Epithelial Cells None Seen (None Seen) /HPF Urine Bacteria None Seen (None Seen) /HPF Urine Culture Reflexed NO (NO) - Radiology Impressions Radiology Exams & Impressions: Radiology Procedures Category Date Time Status CHEST 1 VIEW (PORTABLE) Stat Exams 03/26/25 15:04 Completed Assessment/Plan (1) Hyponatremia Current Visit: Yes Status: Acute Assessment & Plan: -Most likely secondary to HCTZ/lasix -discontinue HCTZ -IVF -hold until repeat sodium level for confirmation -BMP now and q4h -seizure precautions -Serum osmo, urine osmo -neuro checks Code(s): E87.1 - HYPO-OSMOLALITY AND HYPONATREMIA (2) Hypertensive urgency Current Visit: No Status: Resolved Assessment & Plan: -previous poor compliance with medications- patient states he is now compliant with meds- missed afternoon dosing due to being in ED -continue home meds- hold HCTZ -Adjust meds as needed Code(s): I16.0 - HYPERTENSIVE URGENCY (3) History of stroke Current Visit: Yes Status: Acute Assessment & Plan: -continue ASA. atorvastatin, plavix -Continue OP PT when able Code(s): Z86.73 - PRSNL HX OF TIA (TIA), AND CEREB INFRC W/O RESID DEFICITS (4) CAD (coronary artery disease) Current Visit: No Status: Chronic Assessment & Plan: -continue DAPT/statin Code(s): I25.10 - ATHSCL HEART DISEASE OF UTE CORONARY ARTERY W/O ANG PCTRS (5) History of cerebral aneurysm repair Current Visit: No Status: Chronic Assessment & Plan: -Noted with prior supraclinoid clip Code(s): Z98.890 - OTHER SPECIFIED POSTPROCEDURAL STATES; Z86.79 - PERSONAL HISTORY OF OTHER DISEASES OF THE CIRCULATORY SYSTEM (6) Smoker Current Visit: No Status: Chronic Assessment & Plan: -advised cessation; consider nicotine replacement. VTE: Plavix/ASA PPI: protonix Dispo: 1-2 days Code status: Full Code Plan of care time spent greater than 40 mins Code(s): F17.200 - NICOTINE DEPENDENCE, UNSPECIFIED, UNCOMPLICATED Telemedicine Encounter - Telemedicine Encounter Telemedicine Encounter: "The entirety of this encounter was performed via Telemedicine" This visit was performed using real-time audio and video connection between my location and thepatients locationwith the assistance of a surrogateat the patients location. Written or verbal consent was obtained from the patient/guardian to perform this visit using[facility] technology. Any patient questions regarding the telemedicine interaction were answered.
[2025-03-26] MEDS ORDERED: Zofran 4 MG/2 ML VIAL IV PRN (17:48)
[2025-03-26] MEDS ORDERED: NICODERM CQ 14 MG TOP PRN (17:48)
[2025-03-26] MEDS: COREG 12.5 MG PO ONE (18:20)
[2025-03-26] MEDS: NICODERM CQ 14 MG TOP SCH (18:21)
[2025-03-26] MEDS: NON-FORMULARY ITEM (Carvedilol [Carvedilol] 25 MG Tablet) PO SCH (18:23)
[2025-03-26] MEDS: hydroDIURIL 25 MG PO SCH (18:23)
[2025-03-26 18:52] LABS: Calcium 8.5 mg/dL (8.4-10.2); Carbon Dioxide 25.0 mmol/L (22-30); Creatinine 1 0.82 mg/dL (0.66-1.25); EST GLOMERULAR FILTRATION RATE 104.4 ML/MIN; Glucose 95.0 mg/dL (74-106); Potassium 4.5 mmol/L (3.5-5.1)
[2025-03-26] MEDS: NON-FORMULARY ITEM (Varenicline Tartrate [Chantix] 1 MG Tablet) PO SCH (21:28)
[2025-03-26 21:53] LABS: Calcium 8.2 mg/dL (8.4-10.2); Carbon Dioxide 25.0 mmol/L (22-30); Creatinine 1 0.95 mg/dL (0.66-1.25); EST GLOMERULAR FILTRATION RATE 95.1 ML/MIN; Glucose 113.0 mg/dL (74-106); Potassium 3.8 mmol/L (3.5-5.1)
[2025-03-27 01:39] LABS: Calcium 7.9 mg/dL (8.4-10.2); Carbon Dioxide 21.0 mmol/L (22-30); Creatinine 1 0.91 mg/dL (0.66-1.25); EST GLOMERULAR FILTRATION RATE 100.2 ML/MIN; Glucose 126.0 mg/dL (74-106); Potassium 3.8 mmol/L (3.5-5.1)
[2025-03-27] MEDS: TYLENOL 325 MG PO PRN (04:05)
[2025-03-27 04:48] VITALS: O2SAT 96
[2025-03-27 05:04] LABS: BASOPHIL % 0.6 % (0.2-1.2); Basophil (Absolute #) 0.04 x10^3/uL (0.01-0.08); Eosinophil (Absolute #) 0.37 x10^3/uL (0.04-0.54); Hematocrit 37.6 % (40.1-51.0); Hemoglobin 13.7 g/dL (13.7-17.5); IMMATURE GRAN # 0.03 x10^3u/L (0.001-0.031); IMMATURE GRAN % 0.4 % (0.001-0.429); Lymphocyte (Absolute #) 1.69 x10^3/uL (1.32-3.57); Mean Corpuscular Hemoglobin 30.6 pg (25.7-32.2); Mean Corpuscular Hgb Concent. 36.4 g/dL (32.3-36.5); Monocyte (Absolute #) 0.63 x10^3/uL (0.30-0.82); NUCLEATED RBC # 0.00 x10^3u/L (0.00-0.012); NUCLEATED RBC % 0.0 % (0.00-0.2); Platelet Count 173 x10^3/uL (163-337); Red Blood Count 4.47 x10^6/uL (4.63-6.08); White Blood Count 6.9 x10^3/uL (4.23-9.07)
[2025-03-27 05:24] LABS: Calcium 7.7 mg/dL (8.4-10.2); Carbon Dioxide 22 mmol/L (22-30); Creatinine 1 0.96 mg/dL (0.66-1.25); EST GLOMERULAR FILTRATION RATE 93.9 ML/MIN; Glucose 90 mg/dL (74-106); Potassium 4.2 mmol/L (3.5-5.1); SGOT/AST 28 U/L (17-59); SGPT/ALT 32 U/L (0-50); Total Protein 5.4 g/dL (6.3-8.2)
[2025-03-27] MEDS ORDERED: MEDICATION INTERVENTION MC SCH (07:00)
[2025-03-27] MEDS: PLAVIX Tablet PO SCH (09:21)
[2025-03-27] MEDS: Cozaar 50 MG PO SCH (09:21)
[2025-03-27] MEDS: NORVASC 5 MG PO SCH (09:21)
[2025-03-27] MEDS: ECOTRIN 81 MG PO SCH (09:21)
[2025-03-27] MEDS: Tums EX 750 MG PO SCH (09:21)
[2025-03-27] MEDS: Imdur 60MG PO SCH (09:21)
[2025-03-27] MEDS: LIPITOR 40MG PO SCH (09:22)
[2025-03-27 09:36] LABS: Calcium 7.7 mg/dL (8.4-10.2); Carbon Dioxide 23.0 mmol/L (22-30); Creatinine 1 0.98 mg/dL (0.66-1.25); EST GLOMERULAR FILTRATION RATE 91.6 ML/MIN; Glucose 151.0 mg/dL (74-106); Potassium 4.0 mmol/L (3.5-5.1)
[2025-03-27] MEDS ORDERED: ISOSORBIDE MONONITRATE 120 MG PO SCH (10:00)
[2025-03-27] MEDS ORDERED: NON-FORMULARY ITEM (Amlodipine Besylate [Amlodipine Besylate] 10 MG Tablet) PO SCH (10:00)
--- NOTE | 2025-03-27 12:28 | PCM.NOTE ---
Date and Time: 03/27/25 1222 Subjective Assessment: is a 55 year old male with a pmhx of CAD, stroke, HTN, asthma, and prior cerebral aneurysm repair who presented to the ED 03/26/25 after being referred from physical therapy for elevated blood pressure. He is currently participating in physical therapy for gait instability following a recent isc hemic stroke earlier this month. The patient reports chronic headache, but no visual disturbance, chest pain, shortness of breath, nausea, vomiting, or other new symptoms. On arrival to ED blood pressure was 173/109 but otherwise stable vitals. Physical exam revealed a well-appearing male in no acute distress, with clear lung carson, regular heart sounds, no lower extremity edema, and no new focal neurological deficits beyond baseline gait unsteadiness. Patient reports he was recently started on HCTZ. EKG demonstrated normal sinus rhythm at 61 bpm with a first-degree AV block, normal axis, and no ischemic changes. CXR showed no acute findings. Lab findings remarkable for hyponatremia (Na 117 ) with otherwise normal renal function and unremarkable complete blood count. Troponin was negati ve. BNP measured 271. Urinalysis was negative. The patient received IVF in the ED prior to admission for further management of hyponatremia and blood pressure control. 03/27/25: Met with patient bedside. No complaints this morning other than a chronic headache. BP improved now at 119/73. Sodium levels are improved at 122. Patient to continue IVF for hyponatremia. Will get CT head today to rule out intracranial process. Patient agreeable to plan. Denies fever,cough, sob, cp, abdominal pain, dizziness, N/V/D. - Review of Systems Constitutional: No Symptoms Eyes: No Symptoms Ears, Nose, & Throat: No Symptoms Respiratory: No Symptoms Cardiac: No Symptoms Abdominal/Gastrointestinal: No Symptoms Genitourinary Symptoms: No Symptoms Musculoskeletal: No Symptoms Skin: No Symptoms Neurological: Headache (chronic) Psychological: No Symptoms Endocrine: No Symptoms Hematologic/Lymphatic: No Symptoms Immunological/Allergic: No Symptoms Objective Exam General Appearance: no apparent distress Neurologic Exam: alert, oriented x 3, cooperative Skin Exam: normal color Eye Exam: PERRL Ears, Nose, Throat Exam: normal ENT inspection Neck Exam: normal inspection Respiratory Exam: normal breath sounds, lungs clear Cardiovascular Exam: regular rate/rhythm, normal heart sounds Gastrointestinal/Abdomen Exam: soft, normal bowel sounds Extremity Exam: normal inspection Back Exam: normal inspection Male Genitalia Exam: deferred Rectal Exam: deferred Objective Data Vital Signs: Vital Signs - 24 hr Temp Pulse Resp BP BP Pulse Ox 03/27/25 10:00 66 18 119/73 03/27/25 09:00 134/85 03/27/25 08:00 65 140/89 03/27/25 07:00 58 L 154/96 03/27/25 06:00 57 L 138/95 03/27/25 05:00 56 L 139/93 03/27/25 04:00 97.8 F 62 18 145/94 96 03/27/25 03:01 62 19 140/88 03/27/25 02:00 63 17 134/91 03/27/25 01:00 64 17 106/64 03/27/25 00:00 98.1 F 60 15 136/78 98 03/26/25 23:21 66 03/26/25 23:00 61 16 117/72 03/26/25 22:00 68 14 139/82 03/26/25 21:01 71 18 127/87 03/26/25 20:03 97.9 F 63 19 147/83 96 03/26/25 20:02 74 18 03/26/25 19:00 67 0 L 03/26/25 18:15 65 17 03/26/25 17:39 98.0 F 65 16 187/108 95 03/26/25 17:16 98.0 F 65 16 187/108 95 03/26/25 17:00 60 16 166/109 98 03/26/25 16:30 61 15 164/104 98 03/26/25 16:18 99 03/26/25 16:00 173/102 97 03/26/25 15:30 154/99 98 03/26/25 15:21 97 03/26/25 15:20 97 03/26/25 15:19 97 03/26/25 13:28 98.3 F 63 18 173/109 99 Pain Assessment - Last Documented Pain Intensity 0 Pain Scale Used 0-10 Pain Scale Intake and Output: Intake & Output 03/25/25 03/26/25 03/27/25 03/28/25 11:59 11:59 11:59 11:59 Intake Total 2325 Output Total 3125 Balance -800 Weight 90.6 kg Lab Results: Lab Results-Last 24 Hours 03/26/25 03/26/25 03/26/25 Range/Units 14:45 14:45 14:45 WBC 7.3 (4.23-9.07) x10^3/uL RBC 4.90 (4.63-6.08) x10^6/uL Hgb 14.8 (13.7-17.5) g/dL Hct 41.0 (40.1-51.0) % MCV 83.7 (79.0-92.2) fL MCH 30.2 (25.7-32.2) pg MCHC 36.1 (32.3-36.5) g/dL RDW 12.2 (11.6-14.4) % Plt Count 207 (163-337) x10^3/uL MPV 9.3 L (9.4-12.4) fL Gran % 56.0 (34.0-67.9) % Immature Gran % (Auto) 0.4 (0.001-0.429) % Nucleat RBC Rel Count 0.0 (0.00-0.2) % Eos # (Auto) 0.63 H (0.04-0.54) x10^3/uL Immature Gran # (Auto) 0.03 (0.001-0.031) x10^3u/L Absolute Lymphs (auto) 1.65 (1.32-3.57) x10^3/uL Absolute Monos (auto) 0.86 H (0.30-0.82) x10^3/uL Absolute Nucleated RBC 0.00 (0.00-0.012) x10^3u/L Lymphocytes % 22.5 (21.8-53.1) % Monocytes % 11.7 (5.3-12.2) % Eosinophils % 8.6 H (0.8-7.0) % Basophils % 0.8 (0.2-1.2) % Absolute Granulocytes 4.10 (1.78-5.38) x10^3/uL Basophils # 0.06 (0.01-0.08) x10^3/uL Sodium 117 L* (135-145) mmol/L Potassium 4.1 (3.5-5.1) mmol/L Chloride 87 L (98-107) mmol/L Carbon Dioxide 24 (22-30) mmol/L Anion Gap 10.9 (5-15) MEQ/L BUN 16 (9-20) mg/dL Creatinine 0.91 (0.66-1.25) mg/dL Estimated GFR 100.2 ML/MIN Glucose 97 (74-106) mg/dL Calcium 8.6 (8.4-10.2) mg/dL Total Bilirubin 0.20 (0.2-1.3) mg/dL AST 35 (17-59) U/L ALT 37 (0-50) U/L Alkaline Phosphatase 73 (38-126) U/L Troponin I < 0.012 (0.000-0.033) ng/mL NT-Pro-B Natriuret Pep 271 (<300) pg/mL Serum Total Protein 6.6 (6.3-8.2) g/dL Albumin 4.2 (3.5-5.0) g/dL Urine Color (Yellow) Urine Appearance (Clear) Urine pH (4.6-8.0) Ur Specific Alpine (1.005-1.030) Urine Protein (Negative) Urine Glucose (UA) (Negative) mg/dL Urine Ketones (Negative) Urine Blood (Negative) Urine Nitrite (Negative) Urine Bilirubin (Negative) Urine Urobilinogen (0.2) mg/dL Ur Leukocyte Esterase (Negative) U Hyaline Cast (Auto) (0-2) /LPF Urine Microscopic RBC (0-5) /HPF Urine Microscopic WBC (0-5) /HPF Ur Epithelial Cells (None Seen) /HPF Urine Bacteria (None Seen) /HPF Urine Culture Reflexed (NO) 03/26/25 03/26/25 03/26/25 Range/Units 16:09 18:05 18:05 WBC (4.23-9.07) x10^3/uL RBC (4.63-6.08) x10^6/uL Hgb (13.7-17.5) g/dL Hct (40.1-51.0) % MCV (79.0-92.2) fL MCH (25.7-32.2) pg MCHC (32.3-36.5) g/dL RDW (11.6-14.4) % Plt Count (163-337) x10^3/uL MPV (9.4-12.4) fL Gran % (34.0-67.9) % Immature Gran % (Auto) (0.001-0.429) % Nucleat RBC Rel Count (0.00-0.2) % Eos # (Auto) (0.04-0.54) x10^3/uL Immature Gran # (Auto) (0.001-0.031) x10^3u/L Absolute Lymphs (auto) (1.32-3.57) x10^3/uL Absolute Monos (auto) (0.30-0.82) x10^3/uL Absolute Nucleated RBC (0.00-0.012) x10^3u/L Lymphocytes % (21.8-53.1) % Monocytes % (5.3-12.2) % Eosinophils % (0.8-7.0) % Basophils % (0.2-1.2) % Absolute Granulocytes (1.78-5.38) x10^3/uL Basophils # (0.01-0.08) x10^3/uL Sodium 118 L* (135-145) mmol/L Potassium 4.5 (3.5-5.1) mmol/L Chloride 88 L (98-107) mmol/L Carbon Dioxide 25 (22-30) mmol/L Anion Gap 8.6 (5-15) MEQ/L BUN 14 (9-20) mg/dL Creatinine 0.82 (0.66-1.25) mg/dL Estimated GFR 104.4 ML/MIN Glucose 95 (74-106) mg/dL Calcium 8.5 (8.4-10.2) mg/dL Total Bilirubin (0.2-1.3) mg/dL AST (17-59) U/L ALT (0-50) U/L Alkaline Phosphatase (38-126) U/L Troponin I 0.015 (0.000-0.033) ng/mL NT-Pro-B Natriuret Pep (<300) pg/mL Serum Total Protein (6.3-8.2) g/dL Albumin (3.5-5.0) g/dL Urine Color Yellow (Yellow) Urine Appearance Clear (Clear) Urine pH 6.5 (4.6-8.0) Ur Specific Alpine 1.010 (1.005-1.030) Urine Protein Negative (Negative) Urine Glucose (UA) Negative (Negative) mg/dL Urine Ketones Negative (Negative) Urine Blood Negative (Negative) Urine Nitrite Negative (Negative) Urine Bilirubin Negative (Negative) Urine Urobilinogen 0.2 (0.2) mg/dL Ur Leukocyte Esterase Negative (Negative) U Hyaline Cast (Auto) NONE SEEN (0-2) /LPF Urine Microscopic RBC 0-2 (0-5) /HPF Urine Microscopic WBC 0-2 (0-5) /HPF Ur Epithelial Cells None Seen (None Seen) /HPF Urine Bacteria None Seen (None Seen) /HPF Urine Culture Reflexed NO (NO) 03/26/25 03/26/25 03/27/25 Range/Units 21:30 21:30 01:20 WBC (4.23-9.07) x10^3/uL RBC (4.63-6.08) x10^6/uL Hgb (13.7-17.5) g/dL Hct (40.1-51.0) % MCV (79.0-92.2) fL MCH (25.7-32.2) pg MCHC (32.3-36.5) g/dL RDW (11.6-14.4) % Plt Count (163-337) x10^3/uL MPV (9.4-12.4) fL Gran % (34.0-67.9) % Immature Gran % (Auto) (0.001-0.429) % Nucleat RBC Rel Count (0.00-0.2) % Eos # (Auto) (0.04-0.54) x10^3/uL Immature Gran # (Auto) (0.001-0.031) x10^3u/L Absolute Lymphs (auto) (1.32-3.57) x10^3/uL Absolute Monos (auto) (0.30-0.82) x10^3/uL Absolute Nucleated RBC (0.00-0.012) x10^3u/L Lymphocytes % (21.8-53.1) % Monocytes % (5.3-12.2) % Eosinophils % (0.8-7.0) % Basophils % (0.2-1.2) % Absolute Granulocytes (1.78-5.38) x10^3/uL Basophils # (0.01-0.08) x10^3/uL Sodium 119 L* 120 L* (135-145) mmol/L Potassium 3.8 3.8 (3.5-5.1) mmol/L Chloride 91 L 95 L (98-107) mmol/L Carbon Dioxide 25 21 L (22-30) mmol/L Anion Gap 7.0 7.6 (5-15) MEQ/L BUN 15 15 (9-20) mg/dL Creatinine 0.95 0.91 (0.66-1.25) mg/dL Estimated GFR 95.1 100.2 ML/MIN Glucose 113 H 126 H (74-106) mg/dL Calcium 8.2 L 7.9 L (8.4-10.2) mg/dL Total Bilirubin (0.2-1.3) mg/dL AST (17-59) U/L ALT (0-50) U/L Alkaline Phosphatase (38-126) U/L Troponin I 0.013 (0.000-0.033) ng/mL NT-Pro-B Natriuret Pep (<300) pg/mL Serum Total Protein (6.3-8.2) g/dL Albumin (3.5-5.0) g/dL Urine Color (Yellow) Urine Appearance (Clear) Urine pH (4.6-8.0) Ur Specific [place]pine (1.005-1.030) Urine Protein (Negative) Urine Glucose (UA) (Negative) mg/dL Urine Ketones (Negative) Urine Blood (Negative) Urine Nitrite (Negative) Urine Bilirubin (Negative) Urine Urobilinogen (0.2) mg/dL Ur Leukocyte Esterase (Negative) U Hyaline Cast (Auto) (0-2) /LPF Urine Microscopic RBC (0-5) /HPF Urine Microscopic WBC (0-5) /HPF Ur Epithelial Cells (None Seen) /HPF Urine Bacteria (None Seen) /HPF Urine Culture Reflexed (NO) 03/27/25 03/27/25 03/27/25 Range/Units 04:50 04:50 09:10 WBC 6.9 (4.23-9.07) x10^3/uL RBC 4.47 L (4.63-6.08) x10^6/uL Hgb 13.7 (13.7-17.5) g/dL Hct 37.6 L (40.1-51.0) % MCV 84.1 (79.0-92.2) fL MCH 30.6 (25.7-32.2) pg MCHC 36.4 (32.3-36.5) g/dL RDW 12.2 (11.6-14.4) % Plt Count 173 (163-337) x10^3/uL MPV 9.0 L (9.4-12.4) fL Gran % 59.8 (34.0-67.9) % Immature Gran % (Auto) 0.4 (0.001-0.429) % Nucleat RBC Rel Count 0.0 (0.00-0.2) % Eos # (Auto) 0.37 (0.04-0.54) x10^3/uL Immature Gran # (Auto) 0.03 (0.001-0.031) x10^3u/L Absolute Lymphs (auto) 1.69 (1.32-3.57) x10^3/uL Absolute Monos (auto) 0.63 (0.30-0.82) x10^3/uL Absolute Nucleated RBC 0.00 (0.00-0.012) x10^3u/L Lymphocytes % 24.6 (21.8-53.1) % Monocytes % 9.2 (5.3-12.2) % Eosinophils % 5.4 (0.8-7.0) % Basophils % 0.6 (0.2-1.2) % Absolute Granulocytes 4.12 (1.78-5.38) x10^3/uL Basophils # 0.04 (0.01-0.08) x10^3/uL Sodium 122 L 122 L (135-145) mmol/L Potassium 4.2 4.0 (3.5-5.1) mmol/L Chloride 96 L 96 L (98-107) mmol/L Carbon Dioxide 22 23 (22-30) mmol/L Anion Gap 7.2 7.6 (5-15) MEQ/L BUN 14 13 (9-20) mg/dL Creatinine 0.96 0.98 (0.66-1.25) mg/dL Estimated GFR 93.9 91.6 ML/MIN Glucose 90 151 H (74-106) mg/dL Calcium 7.7 L 7.7 L (8.4-10.2) mg/dL Total Bilirubin < 0.10 L (0.2-1.3) mg/dL AST 28 (17-59) U/L ALT 32 (0-50) U/L Alkaline Phosphatase 64 (38-126) U/L Troponin I (0.000-0.033) ng/mL NT-Pro-B Natriuret Pep (<300) pg/mL Serum Total Protein 5.4 L (6.3-8.2) g/dL Albumin 3.2 L (3.5-5.0) g/dL Urine Color (Yellow) Urine Appearance (Clear) Urine pH (4.6-8.0) Ur Specific [place]pine (1.005-1.030) Urine Protein (Negative) Urine Glucose (UA) (Negative) mg/dL Urine Ketones (Negative) Urine Blood (Negative) Urine Nitrite (Negative) Urine Bilirubin (Negative) Urine Urobilinogen (0.2) mg/dL Ur Leukocyte Esterase (Negative) U Hyaline Cast (Auto) (0-2) /LPF Urine Microscopic RBC (0-5) /HPF Urine Microscopic WBC (0-5) /HPF Ur Epithelial Cells (None Seen) /HPF Urine Bacteria (None Seen) /HPF Urine Culture Reflexed (NO) Radiology Exams: Radiology Procedures Category Date Time Status CHEST 1 VIEW (PORTABLE) Stat Exams 03/26/25 15:04 Completed HEAD WITHOUT CONTRAST [CT] Urgent Exams 03/27/25 11:16 Taken Medications: Medications Generic Name Dose Route Start Last Admin Trade Name Freq PRN Reason Stop Dose Admin Acetaminophen 650 mg 03/26/25 17:48 03/27/25 04:05 Acetaminophen 325 Mg Tablet PO 04/25/25 17:47 650 mg Q4H PRN PRN Administration PAIN, FEVER, HEADACHE Amlodipine Besylate 10 mg 03/27/25 10:00 03/27/25 09:21 Amlodipine Besylate 5 Mg Tablet PO 04/26/25 09:59 10 mg DAILY MAYELIN Administration Aspirin 81 mg 03/27/25 10:00 03/27/25 09:21 Aspirin 81 Mg Tablet.Ec PO 04/26/25 09:59 81 mg QAM MAYELIN Administration Atorvastatin Calcium 80 mg 03/27/25 10:00 03/27/25 09:22 Atorvastatin Calcium 40 Mg Tablet PO 04/26/25 09:59 80 mg DAILY MAYELIN Administration Calcium Carbonate/Glycine 750 mg 03/27/25 10:00 03/27/25 09:21 Calcium Carbonate 750 Mg 750 Mg Tab.Chew PO 04/26/25 09:59 750 mg BID MAYELIN Administration Clopidogrel Bisulfate 75 mg 03/27/25 10:00 03/27/25 09:21 Clopidogrel Bisulfate 75 Mg Tablet PO 04/26/25 09:59 75 mg DAILY MAYELIN Administration Sodium Chloride 1,000 mls @ 100 mls/hr 03/26/25 18:00 03/27/25 04:08 Sodium Chloride 0.9% 1000 Ml IV 04/25/25 17:59 100 mls/hr .Q10H MAYELIN Administration Isosorbide Mononitrate 120 mg 03/27/25 10:00 03/27/25 09:21 Isosorbide Mononitrate 60 Mg Tab PO 04/26/25 09:59 120 mg DAILY MAYELIN Administration Losartan Potassium 100 mg 03/27/25 10:00 03/27/25 09:21 Losartan Potassium 50 Mg Tablet PO 04/26/25 09:59 100 mg DAILY MAYELIN Administration Miscellaneous Information 1 each 03/27/25 07:00 Medication Intervention 1 Each Each 04/26/25 06:59 .RN TO CHECK MAYELIN Nicotine 14 mg 03/26/25 18:00 03/26/25 18:21 Nicotine 14 Mg/Patch Patch TOP 04/25/25 17:59 14 mg Q24H MAYELIN Administration Ondansetron HCl 4 mg 03/26/25 17:48 Ondansetron Hcl 4 Mg/2 Ml Vial IV 04/25/25 17:47 Q6H PRN PRN NAUSEA/VOMITING Discontinued Medications Generic Name Dose Route Start Last Admin Trade Name Freq PRN Reason Stop Dose Admin Carvedilol 25 mg 03/26/25 18:19 03/26/25 18:20 Carvedilol 12.5 Mg Tablet PO 03/26/25 18:20 25 mg STAT ONE Administration Hydrochlorothiazide 25 mg 03/26/25 18:04 03/26/25 18:23 Hydrochlorothiazide 25 Mg Tablet PO 04/25/25 18:03 Not Given DAILY MAYELIN Sodium Chloride 1,000 mls @ 100 mls/hr 03/26/25 16:00 03/26/25 16:08 Sodium Chloride 0.9% 1000 Ml IV 04/25/25 15:59 100 mls/hr .Q10H MAYELIN Administration Nicotine 14 mg 03/26/25 17:48 Nicotine 14 Mg/Patch Patch TOP 04/25/25 17:59 Q24H PRN ANXIETY/AGITATION Non-Formulary Medication 25 mg 03/26/25 18:04 03/26/25 18:23 Carvedilol [Carvedilol] PO 04/25/25 18:03 Not Given BID MAYELIN Non-Formulary Medication 1 mg 03/26/25 22:00 03/26/25 21:28 Varenicline Tartrate [Chantix] PO 04/25/25 21:59 Not Given BID MAYELIN Assessment/Plan (1) Hyponatremia Current Visit: Yes Status: Acute Assessment & Plan: -Most likely secondary to HCTZ/lasix -discontinue HCTZ -IVF -hold until repeat sodium level for confirmation -BMP now and q4h -seizure precautions -Serum osmo, urine osmo -neuro checks 03/27: -Sodium level reviewed at 122 -continue BMP q4 hours until sodium level at 130 -serum osmo/urin osmo pending -CT head to r/o intracranial etiology Code(s): E87.1 - HYPO-OSMOLALITY AND HYPONATREMIA (2) Hypertensive urgency Current Visit: No Status: Resolved Assessment & Plan: -previous poor compliance with medications- patient states he is now compliant with meds- missed afternoon dosing due to being in ED -continue home meds- hold HCTZ -Adjust meds as needed 03/27: -BP stable- continue home meds- discontinue HCTZ Code(s): I16.0 - HYPERTENSIVE URGENCY (3) History of stroke Current Visit: Yes Status: Acute Assessment & Plan: -continue ASA. atorvastatin, plavix -Continue OP PT when able Code(s): Z86.73 - PRSNL HX OF TIA (TIA), AND CEREB INFRC W/O RESID DEFICITS (4) CAD (coronary artery disease) Current Visit: No Status: Chronic Assessment & Plan: -continue DAPT/statin Code(s): I25.10 - ATHSCL HEART DISEASE OF [place] CORONARY ARTERY W/O ANG PCTRS (5) History of cerebral aneurysm repair Current Visit: No Status: Chronic Assessment & Plan: -Noted with prior supraclinoid clip Code(s): Z98.890 - OTHER SPECIFIED POSTPROCEDURAL STATES; Z86.79 - PERSONAL HISTORY OF OTHER DISEASES OF THE CIRCULATORY SYSTEM (6) Smoker Current Visit: No Status: Chronic Assessment & Plan: -advised cessation; consider nicotine replacement. VTE: Plavix/ASA PPI: protonix Dispo: 1-2 days Code status: Full Code Plan of care time spent greater than 40 mins Code(s): E87.1 - HYPO-OSMOLALITY AND HYPONATREMIA (2) Hypertensive urgency Current Visit: No Status: Resolved Code(s): I16.0 - HYPERTENSIVE URGENCY (3) History of stroke Current Visit: Yes Status: Acute Code(s): Z86.73 - PRSNL HX OF TIA (TIA), AND CEREB INFRC W/O RESID DEFICITS (4) CAD (coronary artery disease) Current Visit: No Status: Chronic Code(s): I25.10 - ATHSCL HEART DISEASE OF [place] CORONARY ARTERY W/O ANG PCTRS (5) History of cerebral aneurysm repair Current Visit: No Status: Chronic Code(s): Z98.890 - OTHER SPECIFIED POSTPROCEDURAL STATES; Z86.79 - PERSONAL HISTORY OF OTHER DISEASES OF THE CIRCULATORY SYSTEM (6) Smoker Current Visit: No Status: Chronic Code(s): F17.200 - NICOTINE DEPENDENCE, UNSPECIFIED, UNCOMPLICATED
--- NOTE | 2025-03-27 12:44 | XRAY ---
Indication: Hyponatremia. Weakness. Multiple contiguous axial images obtained through the head without contrast. Comparison: March 02, 2025. Grossly stable age-appropriate global atrophy, left parasellar aneurysm clip, left temporoparietal craniotomy, and small focus encephalomalacia inferior left frontal lobe. No acute intracranial hemorrhage, hydrocephalus, or mass effect. Malagon-white matter differentiation preserved. Remaining bony calvarium intact. Visualized paranasal sinuses and mastoid air cells are clear. Impression: Stable nonacute CT head without contrast exam with chronic features.
[2025-03-27 14:44] LABS: Calcium 8.0 mg/dL (8.4-10.2); Carbon Dioxide 25.0 mmol/L (22-30); Creatinine 1 1.18 mg/dL (0.66-1.25); EST GLOMERULAR FILTRATION RATE 73.3 ML/MIN; Glucose 83.0 mg/dL (74-106); Potassium 4.0 mmol/L (3.5-5.1)
[2025-03-28 04:56] VITALS: TEMP 97.7
[2025-03-28 05:23] LABS: BASOPHIL % 0.8 % (0.2-1.2); Basophil (Absolute #) 0.06 x10^3/uL (0.01-0.08); Eosinophil (Absolute #) 0.53 x10^3/uL (0.04-0.54); Hematocrit 36.1 % (40.1-51.0); Hemoglobin 12.8 g/dL (13.7-17.5); IMMATURE GRAN # 0.03 x10^3u/L (0.001-0.031); IMMATURE GRAN % 0.4 % (0.001-0.429); Lymphocyte (Absolute #) 1.64 x10^3/uL (1.32-3.57); Mean Corpuscular Hemoglobin 30.4 pg (25.7-32.2); Mean Corpuscular Hgb Concent. 35.5 g/dL (32.3-36.5); Monocyte (Absolute #) 0.72 x10^3/uL (0.30-0.82); NUCLEATED RBC # 0.00 x10^3u/L (0.00-0.012); NUCLEATED RBC % 0.0 % (0.00-0.2); Platelet Count 185 x10^3/uL (163-337); Red Blood Count 4.21 x10^6/uL (4.63-6.08); White Blood Count 7.5 x10^3/uL (4.23-9.07)
[2025-03-28 05:45] LABS: Calcium 7.9 mg/dL (8.4-10.2); Carbon Dioxide 20 mmol/L (22-30); Creatinine 1 1.04 mg/dL (0.66-1.25); EST GLOMERULAR FILTRATION RATE 85.3 ML/MIN; Glucose 87 mg/dL (74-106); Potassium 4.3 mmol/L (3.5-5.1); SGOT/AST 31 U/L (17-59); SGPT/ALT 39 U/L (0-50); Total Protein 5.5 g/dL (6.3-8.2)
[2025-03-28 10:02] VITALS: BP 165/104
[2025-03-28] MEDS: Toprol-Xl 25MG Tablets PO SCH (11:21)
[2025-03-28 11:32] VITALS: PULSE 84; RESP 19
[2025-03-28 11:32] LABS: Calcium 8.1 mg/dL (8.4-10.2); Carbon Dioxide 23.0 mmol/L (22-30); Creatinine 1 0.95 mg/dL (0.66-1.25); EST GLOMERULAR FILTRATION RATE 95.1 ML/MIN; Glucose 93.0 mg/dL (74-106); Potassium 3.8 mmol/L (3.5-5.1)
--- NOTE | 2025-03-28 12:05 | PCM.DS ---
Discharge Summary Date of Admission: 03/26/25 17:16 Date of Discharge: 03/28/25 Admitting Physician: EMILY LINO MD Primary Care Provider: SHEREE BARILLAS MD Allergies Allergies No Known Drug Allergies Allergy (Verified 03/26/25 14:18) Hospital Summary - Hospital Course Hospital Course: Mr. Michaels is a 55-year-old male with a past medical history of coronary artery disease, prior ischemic stroke, hypertension, asthma, and repaired cerebral aneurysm, who presented on 03/26/25 after referral from physical therapy due to markedly elevated blood pressure. He was undergoing rehabilitation for gait instability following a recent ischemic stroke earlier this month. The patient reported chronic headache but denied visual changes, chest pain, dyspnea, or other acute symptoms. In the ED, blood pressure was 173/109 with otherwise stable vital signs. Exam revealed a well-appearing male in no acute distress, clear lungs, regular heart rhythm, and no new focal neurological deficits beyond baseline. EKG demonstrated normal sinus rhythm at 61 bpm with first-degree AV block, normal axis, and no ischemic changes. Chest X-ray was unremarkable. Labs showed significant hyponatremia with sodium 117 , normal renal function, and unremarkable CBC. Troponin was negative and BNP mildly elevated at 271. Urinalysis was unremarkable. The patient received IV fluids and was admitted for management of hyponatremia and blood pressure optimization. On 03/27, sodium improved to 122 with stable blood pressure at 119/[address] head was obtained, showing no acute intracranial process, only chronic post- stroke and post-surgical changes. On 03/28, sodium lexie further to 129 , and the patient remained asymptomatic and hemodynamically stable, requesting discharge. Lasix and hydrochlorothiazide were discontinued given likely diuretic-induced hyponatremia. His amlodipine was increased to 10mg daily for blood pressure control and advised on oral hydration and close outpatient follow-up with repeat BMP on Tuesday. Patient to keep bp log and take to PCP appt. Discharge Note New Diagnosis: Hyponatremia/HTN urgency New Medications: none Follow Up: PCP with BMP on Tuesday to check sodium levels I spent 35 minutes [id number] with the patient on the day of discharge performing discharge exam, discussing hospital stay and discharge instructions with patient and caregivers, preparation of discharge records, prescriptions & referral forms and addressing any questions/concerns the patient had as documented above. - Vitals & Intake/Output Vital Signs: Vital Signs Temperature 97.7 F 10/30/25 04:00 Pulse Rate 84 03/28/25 11:01 Respiratory Rate 19 03/28/25 11:01 Blood Pressure 165/104 03/28/25 10:00 O2 Sat by Pulse Oximetry 96 03/28/25 04:00 Intake & Output: Intake & Output 03/25/25 03/26/25 03/27/25 03/28/25 11:59 11:59 11:59 11:59 Intake Total 3217 8642 Output Total 4027 9818 Balance -800 -2128 Weight 90.6 kg 90.6 kg - Lab Result Diagrams: 03/28/25 04:25 03/28/25 11:06 Lab Results-Last 24 Hrs: Lab Results-Last 24 Hours 03/27/25 03/28/25 03/28/25 Range/Units 14:28 04:25 04:25 WBC 7.5 (4.23-9.07) x10^3/uL RBC 4.21 L (4.63-6.08) x10^6/uL Hgb 12.8 L (13.7-17.5) g/dL Hct 36.1 L (40.1-51.0) % MCV 85.7 (79.0-92.2) fL MCH 30.4 (25.7-32.2) pg MCHC 35.5 (32.3-36.5) g/dL RDW 12.6 (11.6-14.4) % Plt Count 185 (163-337) x10^3/uL MPV 9.2 L (9.4-12.4) fL Gran % 60.2 (34.0-67.9) % Immature Gran % (Auto) 0.4 (0.001-0.429) % Nucleat RBC Rel Count 0.0 (0.00-0.2) % Eos # (Auto) 0.53 (0.04-0.54) x10^3/uL Immature Gran # (Auto) 0.03 (0.001-0.031) x10^3u/L Absolute Lymphs (auto) 1.64 (1.32-3.57) x10^3/uL Absolute Monos (auto) 0.72 (0.30-0.82) x10^3/uL Absolute Nucleated RBC 0.00 (0.00-0.012) x10^3u/L Lymphocytes % 21.9 (21.8-53.1) % Monocytes % 9.6 (5.3-12.2) % Eosinophils % 7.1 H (0.8-7.0) % Basophils % 0.8 (0.2-1.2) % Absolute Granulocytes 4.52 (1.78-5.38) x10^3/uL Basophils # 0.06 (0.01-0.08) x10^3/uL Sodium 125 L 126 L (135-145) mmol/L Potassium 4.0 4.3 (3.5-5.1) mmol/L Chloride 98 101 (98-107) mmol/L Carbon Dioxide 25 20 L (22-30) mmol/L Anion Gap 7.3 9.4 (5-15) MEQ/L BUN 15 18 (9-20) mg/dL Creatinine 1.18 1.04 (0.66-1.25) mg/dL Estimated GFR 73.3 85.3 ML/MIN Glucose 83 87 (74-106) mg/dL Calcium 8.0 L 7.9 L (8.4-10.2) mg/dL Total Bilirubin < 0.10 L (0.2-1.3) mg/dL AST 31 (17-59) U/L ALT 39 (0-50) U/L Alkaline Phosphatase 66 (38-126) U/L Serum Total Protein 5.5 L (6.3-8.2) g/dL Albumin 3.2 L (3.5-5.0) g/dL 03/28/25 Range/Units 11:06 WBC (4.23-9.07) x10^3/uL RBC (4.63-6.08) x10^6/uL Hgb (13.7-17.5) g/dL Hct (40.1-51.0) % MCV (79.0-92.2) fL MCH (25.7-32.2) pg MCHC (32.3-36.5) g/dL RDW (11.6-14.4) % Plt Count (163-337) x10^3/uL MPV (9.4-12.4) fL Gran % (34.0-67.9) % Immature Gran % (Auto) (0.001-0.429) % Nucleat RBC Rel Count (0.00-0.2) % Eos # (Auto) (0.04-0.54) x10^3/uL Immature Gran # (Auto) (0.001-0.031) x10^3u/L Absolute Lymphs (auto) (1.32-3.57) x10^3/uL Absolute Monos (auto) (0.30-0.82) x10^3/uL Absolute Nucleated RBC (0.00-0.012) x10^3u/L Lymphocytes % (21.8-53.1) % Monocytes % (5.3-12.2) % Eosinophils % (0.8-7.0) % Basophils % (0.2-1.2) % Absolute Granulocytes (1.78-5.38) x10^3/uL Basophils # (0.01-0.08) x10^3/uL Sodium 129 L (135-145) mmol/L Potassium 3.8 (3.5-5.1) mmol/L Chloride 101 (98-107) mmol/L Carbon Dioxide 23 (22-30) mmol/L Anion Gap 8.6 (5-15) MEQ/L BUN 15 (9-20) mg/dL Creatinine 0.95 (0.66-1.25) mg/dL Estimated GFR 95.1 ML/MIN Glucose 93 (74-106) mg/dL Calcium 8.1 L (8.4-10.2) mg/dL Total Bilirubin (0.2-1.3) mg/dL AST (17-59) U/L ALT (0-50) U/L Alkaline Phosphatase (38-126) U/L Serum Total Protein (6.3-8.2) g/dL Albumin (3.5-5.0) g/dL - Radiology Exams Ordered Rad Exams-Entire Visit: Radiology Procedures Category Date Time Status CHEST 1 VIEW (PORTABLE) Stat Exams 03/26/25 15:04 Completed HEAD WITHOUT CONTRAST [CT] Urgent Exams 03/27/25 11:16 Completed Discharge Exam General Appearance: no apparent distress Neurologic Exam: alert, oriented x 3, cooperative Eye Exam: PERRL Ears, Nose, Throat Exam: normal ENT inspection Neck Exam: normal inspection Respiratory Exam: normal breath sounds, lungs clear Cardiovascular Exam: regular rate/rhythm, normal heart sounds Gastrointestinal/Abdomen Exam: soft, normal bowel sounds Male Genitalia Exam: deferred Rectal Exam: deferred Back Exam: normal inspection Extremity Exam: normal inspection Skin Exam: normal color Final Diagnosis/Problem List - Final Discharge Diagnosis/Problem (1) Hyponatremia Current Visit: Yes Status: Acute Assessment & Plan: Likely secondary to combined diuretic effect of HCTZ and Lasix. Discontinue HCTZ and Lasix. Encourage oral hydration; avoid excessive free water restriction. Monitor sodium closely with outpatient BMP early next week. Educated patient on medication changes and early symptoms of hyponatremia (fatigue, confusion, nausea). Follow-up with PCP for ongoing BP and electrolyte monitoring. Code(s): E87.1 - HYPO-OSMOLALITY AND HYPONATREMIA (2) Hypertensive urgency Current Visit: No Status: Resolved Assessment & Plan: Initial BP 173/109 on presentation; improved with supportive management and discontinuation of thiazide. Initiate metoprolol succinate 25 mg PO daily for ongoing control. Continue other home antihypertensives as previously prescribed, excluding HCTZ. Reinforce medication adherence and home BP monitoring. Outpatient follow-up for titration as needed. Code(s): I16.0 - HYPERTENSIVE URGENCY (3) History of stroke Current Visit: Yes Status: Acute Assessment & Plan: Continue dual antiplatelet therapy with aspirin and clopidogrel per secondary prevention protocol. Continue high-intensity statin therapy (atorvastatin). Resume outpatient physical therapy for gait rehabilitation. Monitor for new neurologic symptoms; CT head shows no new infarct or hemorrhage. Code(s): Z86.73 - PRSNL HX OF TIA (TIA), AND CEREB INFRC W/O RESID DEFICITS (4) CAD (coronary artery disease) Current Visit: No Status: Chronic Assessment & Plan: Continue DAPT (aspirin, clopidogrel) and atorvastatin. No evidence of acute coronary syndrome; troponin negative, ECG unchanged. Follow-up with cardiology as outpatient for secondary prevention review. Code(s): I25.10 - ATHSCL HEART DISEASE OF [place] CORONARY ARTERY W/O ANG PCTRS (5) History of cerebral aneurysm repair Current Visit: No Status: Chronic Assessment & Plan: Prior supraclinoid aneurysm clipping noted; no acute imaging changes. Continue neurologic follow-up as appropriate. Code(s): Z98.890 - OTHER SPECIFIED POSTPROCEDURAL STATES; Z86.79 - PERSONAL HISTORY OF OTHER DISEASES OF THE CIRCULATORY SYSTEM (6) Smoker Current Visit: No Status: Chronic Assessment & Plan: Counseling provided regarding cessation. Encourage nicotine replacement or pharmacotherapy as outpatient. Discharge Medications: Start: Metoprolol succinate 25 mg PO daily Continue: Aspirin, clopidogrel, atorvastatin, other chronic medications Discontinue: Hydrochlorothiazide, Lasix Follow-Up: PCP in 3 days for repeat BMP and BP assessment Continue outpatient PT Follow up with cardiology and neurology as previously scheduled Code(s): F17.200 - NICOTINE DEPENDENCE, UNSPECIFIED, UNCOMPLICATED - Discharge Discharge Date: 03/28/25 Disposition: Home, Self-Care Condition: Stable Prescriptions: Continue carvediloL [Carvedilol] 25 mg PO BID Varenicline Tartrate [Chantix] 1 mg PO BID Isosorbide Mononitrate [Isosorbide Mononitrate ER] 120 mg PO DAILY Amlodipine Besylate 10 mg PO DAILY Losartan Potassium 50 mg [Cozaar 50 MG] 100 mg PO DAILY 30 Days #30 tablet Aspirin EC 81 mg [Ecotrin 81 mg] 81 mg PO QAM 21 Days #21 tablet Atorvastatin Calcium [Lipitor 40Mg] 80 mg PO DAILY 30 Days #30 tablet Clopidogrel Bisulfate [Plavix] 75 mg PO DAILY 30 Days #30 tablet Discontinued Furosemide 20 mg [Lasix 20 mg] 20 mg PO DAILY Hydrochlorothiazide 25 mg [hydroDIURIL 25 MG] 25 mg PO DAILY 30 Days #30 tablet Follow up with: SHEREE BARILLAS MD [Primary Care Provider, [facility]] - 04/02/25 11:00 am
== END 2025-03-28 12:53 | disposition home or self-care (01) ==
LOC: ED 13:28 → MED SURG 17:16 → ICU 19:11
PROVIDERS: ADMIT Internal Medicine; ATTEND Internal Medicine
DX: E87.1 Hypo-osmolality and hyponatremia (principal); I16.0 Hypertensive urgency; Z86.73 Personal history of transient ischemic attack (TIA), and cerebral infarction without residual deficits; I25.10 Atherosclerotic heart disease of native coronary artery without angina pectoris; Z98.890 Other specified postprocedural states; Z86.79 Personal history of other diseases of the circulatory system; F17.200 Nicotine dependence, unspecified, uncomplicated; Z79.899 Other long term (current) drug therapy; Z79.01 Long term (current) use of anticoagulants
CPT/HCPCS: 36415; 70450; 71045; 80048; 80053; 81001; 83880; 83930; 83935; 84484; 85025; 93005; 93041; 93268; 94760; 99285; G0378; Q3014

== ENCOUNTER 2025-04-02 09:31 | Emergency (ER) | payer BC ==
[2025-04-02 09:41] VITALS: TEMP 97.4
--- NOTE | 2025-04-02 10:03 | ERPHSYRPT ---
- History of Present Illness Time Seen by Provider: 04/02/25 10:11 Source: patient Exam Limitations: no limitations Patient Subjective Stated Complaint: patient was over at Dr. Fletcher office they sent him to ED because his sodium levels are low want him to get hydrated. Triage Nursing Assessment: pt walked into ED today was over at Dr. Evans office and his sodium is low want him to come get hydrated. patient reports no new weakness. he is still struggling with lewft sided weakness from pprevious stroke. patient denies pizziness or any other symptoms. Physician History: 55-year-old male current smoker history of coronary artery disease hypertension asthma stroke with residual left-sided weakness currently undergoing physical therapy presents to our ED as a referral from Dr. Moffett for further evaluation and treatment of hyponatremia. Patient obtained a.m. labs this morning. Sodium was observed to be 119. Patient was then sent to our ED to manage patient. Patient otherwise at his baseline. Patient asymptomatic. No weakness no numbness no tingling no paresthesias. Patient was admitted to our hospital on March 26. His sodium then was 117. Sodium improved to 129 at discharge. Patient had blood pressure medication changes as blood pressure medications were felt to be the cause of his hyponatremia. Patient states he has been following discharge recommendations including water restriction. No chest pain no shortness of breath no generalized weakness no paresthesias. Portions of this note were created with voice recognition technology. There may be grammatical, spelling, punctuation or sound alike errors Timing/Duration: today Severity: moderate Modifying Factors: Improves With: nothing Associated Symptoms: denies symptoms Allergies/Adverse Reactions: No Known Drug Allergies Allergy (Verified 04/02/25 09:41) Home Medications: Amlodipine Besylate 10 mg PO DAILY 03/02/25 [History] Isosorbide Mononitrate [Isosorbide Mononitrate ER] 120 mg PO DAILY 03/02/25 [History] Varenicline Tartrate [Chantix] 1 mg PO BID 03/02/25 [History] carvediloL [Carvedilol] 25 mg PO BID 03/02/25 [History] Hx Tetanus, Diphtheria Vaccination/Date Given: Yes Hx Influenza Vaccination/Date Given: No Hx Pneumococcal Vaccination/Date Given: No Travel Risk - International Travel Have you traveled outside of the country in past 3 weeks: No - Emerging Infectious Disease Are you exhibiting symptoms associated with any current EIDs: No - Review of Systems All Other Systems: Reviewed and Negative - Past Medical History Pertinent Past Medical History: Yes Neurological History: Other ENT History: No Pertinent History Cardiac History: Coronary Artery Disease, Hypertension Respiratory History: Asthma Endocrine Medical History: No Pertinent History Musculoskeletal History: No Pertinent History GI Medical History: No Pertinent History History: No Pertinent History Psycho-Social History: No Pertinent History Male Reproductive Disorders: No Pertinent History Other Medical History: HX OF CEREBRAL ANEURYSM REPAIR - Past Surgical History Past Surgical History: Yes Neuro Surgical History: Other Cardiac: No Pertinent History Respiratory: No Pertinent History Gastrointestinal: No Pertinent History Genitourinary: No Pertinent History Musculoskeletal: Other Male Surgical History: No Pertinent History Other Surgical History: Brain surgery; L3-L4 fusion Significant Family History: diabetes (left frontotemporal craniotomy and supraclinoid surgical clip placement) - Social History Smoking Status: Current every day smoker Exposure to second hand smoke: Yes Drug Use: none - Social Determinants of Health Will the patient participate in the screening: Yes Do you worry about a steady place to live?: No Do you have any problems with any of the following?: No known problems In the past 12 months,have you had to go without utilities?: No Transportation Issues: No Has anyone in your support network made you feel unsafe?: No Have you or anyone in your house had to go w/o enough food: No - Nursing Vital Signs Nursing Vital Signs: Initial Vital Signs Temperature 97.4 F 04/02/25 09:31 Pulse Rate 60 04/02/25 09:31 Respiratory Rate 20 04/02/25 09:31 O2 Sat by Pulse Oximetry 98 04/02/25 09:31 Pain Scale Pain Intensity 0 - Physical Exam General Appearance: no apparent distress, alert Eye Exam: PERRL/EOMI, eyes nml inspection Ears, Nose, Throat Exam: normal ENT inspection, moist mucous membranes Neck Exam: normal inspection, non-tender, supple, full range of motion Respiratory Exam: normal breath sounds, lungs clear, airway intact, No respiratory distress Cardiovascular Exam: regular rate/rhythm, normal heart sounds, normal peripheral pulses Gastrointestinal/Abdomen Exam: soft, normal bowel sounds, No tenderness, No mass Back Exam: normal inspection, normal range of motion, No CVA tenderness, No vertebral tenderness Extremity Exam: normal inspection, normal range of motion, pelvis stable Neurologic Exam: alert, oriented x 3, cooperative, normal mood/affect, nml cerebellar function, nml station & gait, sensation nml, No motor deficits Skin Exam: normal color, warm, dry, No rash Lymphatic Exam: No adenopathy SpO2 Interpretation: normal SpO2: 99 O2 Delivery: Room Air - Course Nursing assessment & vital signs reviewed: Yes EKG Interpreted by Me: RATE (60), Sinus Rhythm, NORMAL AXIS, NORMAL INTERVALS, NORMAL QRS Ordered Tests: Active Orders 24 hr Category Date Time Status IV Insertion STAT Care 04/02/25 10:04 Active CBC W DIFF Stat Lab 04/02/25 10:23 Completed CMP Stat Lab 04/02/25 10:23 Completed TROPONIN Q4H Lab 04/02/25 10:23 Completed TROPONIN Q4H Lab 04/02/25 14:15 Ordered TROPONIN Q4H Lab 04/02/25 18:15 Ordered UA W/RFX UR CULTURE Stat Lab 04/02/25 10:05 Ordered Medication Summary Generic Name Dose Route Start Last Admin Trade Name Freq PRN Reason Stop Dose Admin Sodium Chloride 1,000 mls @ 100 mls/hr 04/02/25 10:15 04/02/25 10:12 Sodium Chloride 0.9% 1000 Ml IV 05/02/25 10:14 100 mls/hr .Q10H MAYELIN Administration Lab/Rad Data: Laboratory Result Diagrams 04/02/25 10:23 04/02/25 10:23 Laboratory Results 04/02/25 04/02/25 04/02/25 Range/Units 10:23 10:23 10:23 WBC 7.6 (4.23-9.07) x10^3/uL RBC 4.77 (4.63-6.08) x10^6/uL Hgb 14.7 (13.7-17.5) g/dL Hct 40.8 (40.1-51.0) % MCV 85.5 (79.0-92.2) fL MCH 30.8 (25.7-32.2) pg MCHC 36.0 (32.3-36.5) g/dL RDW 12.3 (11.6-14.4) % Plt Count 227 (163-337) x10^3/uL MPV 8.8 L (9.4-12.4) fL Gran % 61.9 (34.0-67.9) % Immature Gran % (Auto) 0.8 H (0.001-0.429) % Nucleat RBC Rel Count 0.0 (0.00-0.2) % Eos # (Auto) 0.53 (0.04-0.54) x10^3/uL Immature Gran # (Auto) 0.06 H (0.001-0.031) x10^3u/L Absolute Lymphs (auto) 1.42 (1.32-3.57) x10^3/uL Absolute Monos (auto) 0.82 (0.30-0.82) x10^3/uL Absolute Nucleated RBC 0.00 (0.00-0.012) x10^3u/L Lymphocytes % 18.7 L (21.8-53.1) % Monocytes % 10.8 (5.3-12.2) % Eosinophils % 7.0 (0.8-7.0) % Basophils % 0.8 (0.2-1.2) % Absolute Granulocytes 4.70 (1.78-5.38) x10^3/uL Basophils # 0.06 (0.01-0.08) x10^3/uL Sodium 118 L* (135-145) mmol/L Potassium 4.6 (3.5-5.1) mmol/L Chloride 86 L (98-107) mmol/L Carbon Dioxide 25 (22-30) mmol/L Anion Gap 12.4 (5-15) MEQ/L BUN 18 (9-20) mg/dL Creatinine 0.96 (0.66-1.25) mg/dL Estimated GFR 93.9 ML/MIN Glucose 102 (74-106) mg/dL Calcium 9.1 (8.4-10.2) mg/dL Total Bilirubin 0.40 (0.2-1.3) mg/dL AST 31 (17-59) U/L ALT 36 (0-50) U/L Alkaline Phosphatase 66 (38-126) U/L Troponin I 0.014 (0.000-0.033) ng/mL Serum Total Protein 6.2 L (6.3-8.2) g/dL Albumin 3.9 (3.5-5.0) g/dL - Progress Progress: improved Progress Note: Case discussed with hospitalist Dr. Raya. Dr. Raya feels patient requires a nephrology consultation. He is investigating whether they can phone consult with nephrology as an inpatient. If so he will admit, otherwise he will advise transferring. Spoke to Dr. Raya at 1018am. 04/02/25 10:[address] Raya, hospitalist. He advised transfer for nephrology consult as we are unable to consult nephrology from the floor. 04/02/25 10:30 I spoke to ER physician at [facility]. He accepts transfer at 10:39 AM for hyponatremia 04/02/25 10:39 55-year-old male current smoker history of coronary artery disease hypertension asthma stroke with residual left-sided weakness currently undergoing physical therapy presents to our ED as a referral from Dr. Moffett for further evaluation and treatment of hyponatremia. Patient obtained a.m. labs this morning. Sodium was observed to be 119. Patient was then sent to our ED to manage patient. Patient otherwise at his baseline. Patient asymptomatic. No weakness no numbness no tingling no paresthesias. 04/02/25 10:49 We repeated patient's labs. Results pending however they are expected to be very similar to the labs done just this morning. Patient advised of the plan of care. Patient agrees to transfer to [facility] for further evaluation and treatment. He voices no other complaints or concerns at this time. Portions of this note were created with voice recognition technology. There may be grammatical, spelling, punctuation or sound alike errors Complexity of problems addressed is moderate acute complicated. No critical care time. Complexity of data reviewed and analyzed is extensive. Test ordered chest reviewed results analyzed and correlated clinically with history and physical exam. Risk of complication and or risk of morbidity/mortality of patient management is high. Patient requires transfer to higher level of care. Vital stable. Time spent to transfer patient approximately 20 minutes. Plan of care established for shared decision making. No social determinants of health present to impede follow-up. Portions of this note were created with voice recognition technology. There may be grammatical, spelling, punctuation or sound alike errors 04/02/25 10:49 = Counseled pt/family regarding: lab results, diagnosis - Departure Departure Disposition: Transfer Clinical Impression: Hyponatremia Condition: Stable Critical Care Time: No Referrals: SHEREE MOFFETT MD [Primary Care Provider, [facility]] - Follow up/PCP as directed
[2025-04-02 10:24] LABS: BASOPHIL % 0.8 % (0.2-1.2); Basophil (Absolute #) 0.06 x10^3/uL (0.01-0.08); Eosinophil (Absolute #) 0.53 x10^3/uL (0.04-0.54); Hematocrit 40.8 % (40.1-51.0); Hemoglobin 14.7 g/dL (13.7-17.5); IMMATURE GRAN # 0.06 x10^3u/L (0.001-0.031); IMMATURE GRAN % 0.8 % (0.001-0.429); Lymphocyte (Absolute #) 1.42 x10^3/uL (1.32-3.57); Mean Corpuscular Hemoglobin 30.8 pg (25.7-32.2); Mean Corpuscular Hgb Concent. 36.0 g/dL (32.3-36.5); Monocyte (Absolute #) 0.82 x10^3/uL (0.30-0.82); NUCLEATED RBC # 0.00 x10^3u/L (0.00-0.012); NUCLEATED RBC % 0.0 % (0.00-0.2); Platelet Count 227 x10^3/uL (163-337); Red Blood Count 4.77 x10^6/uL (4.63-6.08); White Blood Count 7.6 x10^3/uL (4.23-9.07)
[2025-04-02 10:38] VITALS: O2SAT 99
[2025-04-02 10:46] LABS: Calcium 9.1 mg/dL (8.4-10.2); Carbon Dioxide 25.0 mmol/L (22-30); Creatinine 1 0.96 mg/dL (0.66-1.25); EST GLOMERULAR FILTRATION RATE 93.9 ML/MIN; Glucose 102.0 mg/dL (74-106); SGOT/AST 31.0 U/L (17-59); SGPT/ALT 36.0 U/L (0-50); Total Protein 6.2 g/dL (6.3-8.2)
[2025-04-02 10:54] LABS: Potassium 4.6 mmol/L (3.5-5.1)
[2025-04-02 11:34] VITALS: BP 126/88; PULSE 68; RESP 20
== END 2025-04-02 11:35 | disposition short-term general hospital (02) ==
LOC: ED 09:31
DX: E87.1 Hypo-osmolality and hyponatremia (principal); I10 Essential (primary) hypertension; Z79.899 Other long term (current) drug therapy; Z72.0 Tobacco use